=== PATIENT | female | born 1930 | race Caucasian/White ===

== ENCOUNTER → 2018-05-14 | Outpatient (CLI) | payer MEDICARE, BC ==
--- NOTE | 2018-05-14 14:04 | US ---
EXAMINATION TYPE: US kidneys/renal and bladder DATE OF EXAM: 05/14/2018 COMPARISON: NONE CLINICAL HISTORY: R82.99 ABN.FINDINGS IN URINE. Abnormal creatinine EXAM MEASUREMENTS: Right Kidney: 9.2 x 4.8 x 4.8 cm Left Kidney: 9.3 x 4.0 x 3.6 cm Right Kidney: Simple cystic area = 2.2 x 1.9 x 2.4cm Left Kidney: lower pole obscured by overlying bowel, unable to rule out mass, no evidence of hydronep hrosis Bladder: appears wnl Bilateral Jets seen: yes IMPRESSION: 1. Simple right renal cyst
== END | disposition home or self-care (01) ==
LOC: RADUSWWP 13:06
PROVIDERS: ATTEND Family Medicine
DX: N28.1 Cyst of kidney, acquired (principal)
CPT/HCPCS: 76770

== ENCOUNTER 2018-11-25 15:14 | Emergency (ER) | payer MEDICARE, BC ==
[2018-11-25 15:18] VITALS: TEMP 97.8
--- NOTE | 2018-11-25 15:58 | XR ---
EXAMINATION TYPE: XR shoulder complete RT DATE OF EXAM: 11/25/2018 COMPARISON: NONE HISTORY: Shoulder pain TECHNIQUE: 3 views FINDINGS: There is minor spurring at the greater tuberosity of the humerus. I see no fracture nor dis location. IMPRESSION: Mild spurring. No fracture seen.
--- NOTE | 2018-11-25 15:59 | XR ---
EXAMINATION TYPE: XR humerus RT DATE OF EXAM: 11/25/2018 COMPARISON: NONE HISTORY: Pain after a fall TECHNIQUE: 4 views FINDINGS: Glenohumeral joint is intact. Elbow joint appears intact. I see no fracture nor dislocation . There is some spurring at the greater tuberosity of the humerus. IMPRESSION: No acute abnormality of the right humerus.
--- NOTE | 2018-11-25 16:04 | ED ---
General Adult HPI - General Chief complaint: Extremity Injury, Upper Stated complaint: Fall Time Seen by Provider: 11/25/18 15:19 Source: patient, family, RN notes reviewed Mode of arrival: wheelchair Limitations: no limitations - History of Present Illness Initial comments: Patient is a pleasant 88-year-old female presenting to the emergency Department with complaints of right upper shoulder discomfort. Patient states she woke up this morning after she fell out of bed. Patient states she still landed on the right upper shoulder region. Patient has complain of discomfort since that time. Discomfort increases with movement. Patient is not aware of hitting her head or losing consciousness. No neck or back pain. No chest pain. No hip injury. No other areas of concern. - Related Data Home Medications Medication Instructions Recorded Confirmed Butalb/APAP/Caff 50-325-40Mg 1 tab PO Q6H PRN 04/25/16 06/27/16 [Fioricet 50-325-40] Lisinopril [Zestril] 5 mg PO HS 05/27/16 06/27/16 Levothyroxine Sodium [Synthroid] 50 mcg PO DAILY 06/14/16 06/27/16 Lisinopril [Zestril] 10 mg PO DAILY 06/14/16 06/27/16 DULoxetine HCL [Cymbalta] 30 mg PO BID 06/27/16 06/27/16 Previous Rx's Medication Instructions Recorded Acetaminophen Tab [Tylenol] 650 mg PO Q6HR PRN #0 tab 07/02/16 Acetaminophen with Codeine 1 tab PO Q6HR PRN #20 tablet 07/02/16 [Tylenol w/codeine #4] Artificial Tears-Hypromellose 1 drops BOTH EYES BID bottle 07/02/16 [Artificial Tear Drops] Cholestyramine (with Sugar) 4 gm PO QID #30 packet 07/02/16 [Questran Packet] Melatonin 2 mg PO HS tab 07/02/16 Pantoprazole [Protonix] 40 mg PO AC-BRKFST #30 tablet. 07/02/16 QUEtiapine [SEROquel] 12.5 mg PO HS #10 tab 07/02/16 Sodium Chloride Tab 1 gm PO TID tab 07/02/16 Vancomycin Oral Solution 250 mg PO Q6HR #0 ml 07/02/16 oxyCODONE-APAP 5-325MG [Percocet 1 tab PO BID #14 tab 07/02/16 5-325 mg] Allergies Allergy/AdvReac Type Severity Reaction Status Date / Time amiodarone HCl Allergy Unknown Verified 11/25/18 15:18 [From Cordarone] epinephrine Allergy Unknown Verified 11/25/18 15:18 metoclopramide HCl Allergy Unknown Verified 11/25/18 15:18 [From Reglan] nifedipine [From Procardia] Allergy Unknown Verified 11/25/18 15:18 nitrofurantoin Allergy Unknown Verified 11/25/18 15:18 macrocrystalline [From Macrodantin] propafenone HCl Allergy Unknown Verified 11/25/18 15:18 [From Rythmol] Quinolones Allergy Unknown Verified 11/25/18 15:18 novacaine Allergy Unknown Uncoded 11/25/18 15:18 Review of Systems ROS Statement: Those systems with pertinent positive or pertinent negative responses have been documented in the HPI. ROS Other: All systems not noted in ROS Statement are negative. Constitutional: Denies: fever Eyes: Denies: eye pain ENT: Denies: ear pain Respiratory: Denies: cough Cardiovascular: Denies: chest pain Endocrine: Denies: fatigue Gastrointestinal: Denies: abdominal pain Genitourinary: Denies: dysuria Musculoskeletal: Reports: as per HPI. Denies: back pain Skin: Denies: rash Neurological: Denies: headache Past Medical History Past Medical History: Atrial Fibrillation, CVA/TIA, Dementia, Hypertension, Osteoarthritis (OA), Pneumonia, Thyroid Disorder Additional Past Medical History / Comment(s): hypothyroid, migraine cephalgia, irregular heart rate, TIA, neuropathy History of Any Multi-Drug Resistant Organisms: None Reported Past Surgical History: Appendectomy, Back Surgery, Section, Orthopedic Surgery, Tonsillectomy Additional Past Surgical History / Comment(s): Back surgery failed stenosis repair, pelvic area reconstruction surgery 3x post vaginal delivery of first child, hammer toe repair with pin and removal. Past Anesthesia/Blood Transfusion Reactions: No Reported Reaction Past Psychological History: Depression Smoking Status: Never smoker Past Alcohol Use History: None Reported Past Drug Use History: None Reported - Past Family History Mother Family Medical History: Hypertension Father Family Medical History: CVA/TIA General Exam Limitations: no limitations General appearance: alert, in no apparent distress Head exam: Present: atraumatic, normocephalic Eye exam: Present: normal appearance, PERRL, EOMI ENT exam: Present: normal oropharynx Neck exam: Present: normal inspection, full ROM. Absent: tenderness Respiratory exam: Present: normal lung sounds bilaterally. Absent: chest wall tenderness Cardiovascular Exam: Present: regular rate, normal rhythm Expanded Peripheral pulses: 2+: Radial (R) GI/Abdominal exam: Present: soft. Absent: tenderness Extremities exam: Present: tenderness (Mild tenderness right proximal humerus and humeral head. No tenderness to the clavicle. No tenderness to the scapula. Mild tenderness to the trapezius between the neck and shoulder. No cervical spine or thoracic spine tenderness. No arm weakness. Sensation intact. No other extremity tenderness.) Back exam: Present: normal inspection. Absent: tenderness, vertebral tenderness Neurological exam: Present: alert, CN II-XII intact. Absent: motor sensory deficit Psychiatric exam: Present: normal affect, normal mood Skin exam: Present: normal color Course Vital Signs 11/25/18 15:16 Temperature 97.8 F Pulse Rate 88 Respiratory 20 Rate Blood Pressure 188/106 O2 Sat by Pulse 99 Oximetry Medical Decision Making - Medical Decision Making Patient reevaluated. Patient and family updated. - Radiology Data Radiology results: image reviewed (X-ray of the right humerus and shoulder reveals no acute abnormality.) Disposition Clinical Impression: Shoulder strain Disposition: HOME SELF-CARE Condition: Stable Instructions: Shoulder Sprain (ED) Additional Instructions: [id number] Tylenol or Motrin as needed. Please follow-up with primary care physician in the next day or 2 for recheck. Return for weakness, worsening or change in symptoms, or any other concerns. Is patient prescribed a controlled substance at d/c from ED?: No Referrals: Florencia Gaviria MD [STAFF PHYSICIAN] - 1-2 days Time of Disposition: 16:13
[2018-11-25] MEDS ORDERED: ACETAMINOPHEN TAB 325 MG TAB PO STA (16:13)
[2018-11-25] MEDS ORDERED: Acetaminophen-Codeine 300-30mg TAB PO STA (16:46)
[2018-11-25 17:01] VITALS: BP 160/78; PULSE 70; RESP 18
== END 2018-11-25 17:00 | disposition home or self-care (01) ==
LOC: EC 15:14
DX: S46.911A Strain of unspecified muscle, fascia and tendon at shoulder and upper arm level, right arm, initial encounter (principal); M19.90 Unspecified osteoarthritis, unspecified site; I10 Essential (primary) hypertension; E03.9 Hypothyroidism, unspecified; F32.9 Major depressive disorder, single episode, unspecified; Z86.73 Personal history of transient ischemic attack (TIA), and cerebral infarction without residual deficits; Z79.899 Other long term (current) drug therapy; Z88.8 Allergy status to other drugs, medicaments and biological substances; Z88.1 Allergy status to other antibiotic agents; Z88.7 Allergy status to serum and vaccine; W06.XXXA Fall from bed, initial encounter
CPT/HCPCS: 99283

== ENCOUNTER 2019-01-06 15:09 | Inpatient (IN) | payer MEDICARE, BC ==
[2019-01-06] MEDS ORDERED: SODIUM CHLORIDE 0.9% 1,000 ML IV STA (16:19)
--- NOTE | 2019-01-06 16:23 | ED ---
General Adult HPI - General Chief complaint: Weakness Stated complaint: weakness Time Seen by Provider: 01/06/19 15:56 Source: patient, family, RN notes reviewed Mode of arrival: wheelchair Limitations: no limitations - History of Present Illness Initial comments: Patient is a pleasant 88-year-old male presenting to the emergency Department with complaints of generalized weakness. Onset was yesterday afternoon. Symptoms continue. Patient has difficulty standing up. Patient does admit to having a fall a couple of weeks ago with some discomfort of her left leg. This doesn't have it her from doing some of her normal activities. Patient is able to still walk. Patient may have some discomfort of her lower back however mostly the left upper leg. Patient did not hit her head or lose consciousness. Patient denies any confusion. Patient does have history of similar symptoms previously intermittently however they usually improve in short period of time. - Related Data Home Medications Medication Instructions Recorded Confirmed Lisinopril [Zestril] 5 mg PO HS 05/27/16 01/06/19 Lisinopril [Zestril] 10 mg PO DAILY 06/14/16 01/06/19 DULoxetine HCL [Cymbalta] 30 mg PO BID 06/27/16 01/06/19 Ascorbic Acid [Vitamin C] 500 mg PO DAILY 11/25/18 01/06/19 Cholecalciferol [Vitamin D3] 1,000 unit PO DAILY 11/25/18 01/06/19 Gabapentin [Neurontin] 400 mg PO BID 11/25/18 01/06/19 Levothyroxine Sodium [Synthroid] 88 mcg PO DAILY 11/25/18 01/06/19 Mirtazapine [Remeron] 15 mg PO HS 11/25/18 01/06/19 Pravastatin Sodium [Pravachol] 10 mg PO DAILY 11/25/18 01/06/19 Vit C/E/Zn/Coppr/Lutein/Zeaxan 1 cap PO DAILY 11/25/18 01/06/19 [Preservision Areds 2 Softgel] oxyCODONE-APAP 10-325MG [Percocet 1 tab PO Q12H 11/25/18 01/06/19 10-325 mg] Ferrous Sulfate [Feosol] 325 mg PO DAILY 01/06/19 01/06/19 Allergies Allergy/AdvReac Type Severity Reaction Status Date / Time amiodarone HCl Allergy Unknown Verified 01/06/19 16:22 [From Cordarone] epinephrine Allergy Unknown Verified 01/06/19 16:22 metoclopramide HCl Allergy Unknown Verified 01/06/19 16:22 [From Reglan] nifedipine [From Procardia] Allergy Unknown Verified 01/06/19 16:22 nitrofurantoin Allergy Unknown Verified 01/06/19 16:22 macrocrystalline [From Macrodantin] propafenone HCl Allergy Unknown Verified 01/06/19 16:22 [From Rythmol] Quinolones Allergy Unknown Verified 01/06/19 16:22 novacaine Allergy Unknown Uncoded 01/06/19 15:28 Review of Systems ROS Statement: Those systems with pertinent positive or pertinent negative responses have been documented in the HPI. ROS Other: All systems not noted in ROS Statement are negative. Constitutional: Denies: fever Eyes: Denies: eye pain ENT: Denies: ear pain Respiratory: Denies: cough, dyspnea Cardiovascular: Denies: chest pain Endocrine: Reports: fatigue Gastrointestinal: Denies: abdominal pain Genitourinary: Denies: dysuria Musculoskeletal: Reports: as per HPI Skin: Denies: rash Neurological: Reports: as per HPI. Denies: headache, confusion Past Medical History Past Medical History: Atrial Fibrillation, CVA/TIA, Dementia, Hypertension, Osteoarthritis (OA), Pneumonia, Thyroid Disorder Additional Past Medical History / Comment(s): hypothyroid, migraine cephalgia, irregular heart rate, TIA, neuropathy History of Any Multi-Drug Resistant Organisms: None Reported Past Surgical History: Appendectomy, Back Surgery, Section, Orthopedic Surgery, Tonsillectomy Additional Past Surgical History / Comment(s): Back surgery failed stenosis repair, pelvic area reconstruction surgery 3x post vaginal delivery of first child, hammer toe repair with pin and removal. Past Anesthesia/Blood Transfusion Reactions: No Reported Reaction Past Psychological History: Depression Smoking Status: Never smoker Past Alcohol Use History: None Reported Past Drug Use History: None Reported - Past Family History Mother Family Medical History: Hypertension Father Family Medical History: CVA/TIA General Exam Limitations: no limitations General appearance: alert, in no apparent distress Head exam: Present: atraumatic, normocephalic Eye exam: Present: normal appearance, PERRL, EOMI ENT exam: Present: normal oropharynx Neck exam: Present: normal inspection. Absent: tenderness, meningismus Respiratory exam: Present: normal lung sounds bilaterally Cardiovascular Exam: Present: regular rate, normal rhythm GI/Abdominal exam: Present: soft. Absent: tenderness Extremities exam: Present: tenderness (Minimal tenderness left lateral upper thigh.). Absent: pedal edema, calf tenderness Back exam: Present: normal inspection. Absent: tenderness, vertebral tenderness Neurological exam: Present: alert, oriented X3, CN II-XII intact. Absent: motor sensory deficit Expanded Patient oriented to: Present: person, place, time Sensory exam: Upper Extremity Light Touch: Normal, Lower Extremity Light Touch: Normal Motor strength exam: RUE: 5, LUE: 5, RLE: 5, LLE: 5 Eye Response: (4) open spontaneously Motor Response: (6) obeys commands Verbal Response: (5) oriented Psychiatric exam: Present: normal affect, normal mood Skin exam: Present: normal color Course Vital Signs 01/06/19 01/06/19 15:23 16:46 Temperature 98.3 F 100.8 F H Pulse Rate 85 Respiratory 16 Rate Blood Pressure 95/64 O2 Sat by Pulse 95 Oximetry - Reevaluation(s) Reevaluation #1: 01/06/19 18:30 Patient does meet sepsis criteria diagnosed at 1830. Blood culture and lactic acid and urine culture and IV antibiotics have all been ordered. EKG Findings - EKG Comments: EKG Findings:: Normal sinus rhythm 78. CT 200. QRS 86. QT 360. QTC 410. Left axis. Septal Q waves. Inferior Q waves. No acute ST change. Medical Decision Making - Medical Decision Making Patient reevaluated and resting comfortably in bed. Patient and family updated on results and plan. Case discussed in detail with Dr. waterman, who will admit for Dr. Hunt, who admits for Dr. Shepard. - Lab Data Result diagrams: 01/06/19 16:20 01/06/19 16:20 Lab Results 01/06/19 01/06/19 01/06/19 Range/Units 16:20 16:20 16:20 WBC 12.2 H (3.8-10.6) k/uL RBC 3.98 (3.80-5.40) m/uL Hgb 12.3 (11.4-16.0) gm/dL Hct 37.1 (34.0-46.0) % MCV 93.2 (80.0-100.0) fL MCH 30.9 (25.0-35.0) pg MCHC 33.2 (31.0-37.0) g/dL RDW 13.6 (11.5-15.5) % Plt Count 340 (150-450) k/uL Neutrophils % 77 % Lymphocytes % 10 % Monocytes % 9 % Eosinophils % 1 % Basophils % 1 % Neutrophils # 9.4 H (1.3-7.7) k/uL Lymphocytes # 1.3 (1.0-4.8) k/uL Monocytes # 1.1 H (0-1.0) k/uL Eosinophils # 0.2 (0-0.7) k/uL Basophils # 0.1 (0-0.2) k/uL PT (9.0-12.0) sec INR (<1.2) APTT (22.0-30.0) sec Sodium 137 (137-145) mmol/L Potassium 4.6 (3.5-5.1) mmol/L Chloride 101 (98-107) mmol/L Carbon Dioxide 26 (22-30) mmol/L Anion Gap 10 mmol/L BUN 21 H (7-17) mg/dL Creatinine 1.28 H (0.52-1.04) mg/dL Est GFR (CKD-EPI)AfAm 43 (>60 ml/min/1.73 sqM) Est GFR (CKD-EPI)NonAf 38 (>60 ml/min/1.73 sqM) Glucose 115 H (74-99) mg/dL Calcium 9.5 (8.4-10.2) mg/dL Magnesium 2.0 (1.6-2.3) mg/dL Total Bilirubin 0.7 (0.2-1.3) mg/dL AST 27 (14-36) U/L ALT 21 (9-52) U/L Alkaline Phosphatase 77 (38-126) U/L Total Creatine Kinase 197 H (30-135) U/L CK-MB (CK-2) 1.9 (0.0-2.4) ng/mL CK-MB (CK-2) Rel Index 1.0 Troponin I <0.012 (0.000-0.034) ng/mL Total Protein 7.5 (6.3-8.2) g/dL Albumin 4.1 (3.5-5.0) g/dL TSH 14.900 H (0.465-4.680) mIU/L Free T4 0.85 (0.78-2.19) ng/dL Free T3 pg/mL 1.8 L (2.8-5.3) pg/ml Urine Color Urine Appearance (Clear) Urine pH (5.0-8.0) Ur Specific [place] (1.001-1.035) Urine Protein (Negative) Urine Glucose (UA) (Negative) Urine Ketones (Negative) Urine Blood (Negative) Urine Nitrite (Negative) Urine Bilirubin (Negative) Urine Urobilinogen (<2.0) mg/dL Ur Leukocyte Esterase (Negative) Urine WBC (0-5) /hpf Urine WBC Clumps (None) /hpf Urine Bacteria (None) /hpf 01/06/19 01/06/19 Range/Units 16:20 16:55 WBC (3.8-10.6) k/uL RBC (3.80-5.40) m/uL Hgb (11.4-16.0) gm/dL Hct (34.0-46.0) % MCV (80.0-100.0) fL MCH (25.0-35.0) pg MCHC (31.0-37.0) g/dL RDW (11.5-15.5) % Plt Count (150-450) k/uL Neutrophils % % Lymphocytes % % Monocytes % % Eosinophils % % Basophils % % Neutrophils # (1.3-7.7) k/uL Lymphocytes # (1.0-4.8) k/uL Monocytes # (0-1.0) k/uL Eosinophils # (0-0.7) k/uL Basophils # (0-0.2) k/uL PT 10.3 (9.0-12.0) sec INR 1.0 (<1.2) APTT 22.5 (22.0-30.0) sec Sodium (137-145) mmol/L Potassium (3.5-5.1) mmol/L Chloride (98-107) mmol/L Carbon Dioxide (22-30) mmol/L Anion Gap mmol/L BUN (7-17) mg/dL Creatinine (0.52-1.04) mg/dL Est GFR (CKD-EPI)AfAm (>60 ml/min/1.73 sqM) Est GFR (CKD-EPI)NonAf (>60 ml/min/1.73 sqM) Glucose (74-99) mg/dL Calcium (8.4-10.2) mg/dL Magnesium (1.6-2.3) mg/dL Total Bilirubin (0.2-1.3) mg/dL AST (14-36) U/L ALT (9-52) U/L Alkaline Phosphatase (38-126) U/L Total Creatine Kinase (30-135) U/L CK-MB (CK-2) (0.0-2.4) ng/mL CK-MB (CK-2) Rel Index Troponin I (0.000-0.034) ng/mL Total Protein (6.3-8.2) g/dL Albumin (3.5-5.0) g/dL TSH (0.465-4.680) mIU/L Free T4 (0.78-2.19) ng/dL Free T3 pg/mL (2.8-5.3) pg/ml Urine Color Yellow Urine Appearance Turbid H (Clear) Urine pH 5.5 (5.0-8.0) Ur Specific [place] 1.016 (1.001-1.035) Urine Protein 2+ H (Negative) Urine Glucose (UA) Negative (Negative) Urine Ketones Negative (Negative) Urine Blood Small H (Negative) Urine Nitrite Negative (Negative) Urine Bilirubin Negative (Negative) Urine Urobilinogen <2.0 (<2.0) mg/dL Ur Leukocyte Esterase Large H (Negative) Urine WBC >182 H (0-5) /hpf Urine WBC Clumps Many H (None) /hpf Urine Bacteria Many H (None) /hpf - Radiology Data Radiology results: report reviewed (Computed tomography scan the brain reveals no acute process), image reviewed (Chest x-ray shows no acute process) Critical Care Time Critical Care Time: Yes Total Critical Care Time: 33 Disposition Clinical Impression: UTI (urinary tract infection), Sepsis Disposition: ADMITTED IP TO THIS HOSP Is patient prescribed a controlled substance at d/c from ED?: No Referrals: Jacob Shepard DO [Primary Care Provider] - 1-2 days Decision Time: 18:31
[2019-01-06 16:31] LABS: Basophils # (A) 0.1 k/uL (0-0.2); Basophils % (A) 1 %; Eosinophils # (A) 0.2 k/uL (0-0.7); Eosinophils % (A) 1 %; HCT 37.1 % (34.0-46.0); HGB 12.3 gm/dL (11.4-16.0); Lymphocytes # (A) 1.3 k/uL (1.0-4.8); Lymphocytes % (A) 10 %; MCH 30.9 pg (25.0-35.0); MCHC 33.2 g/dL (31.0-37.0); MCV 93.2 fL (80.0-100.0); Mean Platelet Volume 6.6; Monocytes # (A) 1.1 k/uL (0-1.0); Monocytes % (A) 9 %; Neutrophils # (A) 9.4 k/uL (1.3-7.7); Neutrophils % (A) 77 %; Platelet Count 340 k/uL (150-450); RBC 3.98 m/uL (3.80-5.40); RDW 13.6 % (11.5-15.5); WBC 12.2 k/uL (3.8-10.6)
[2019-01-06 16:40] LABS: Albumin 4.1 g/dL (3.5-5.0); Calcium 9.5 mg/dL (8.4-10.2); Potassium 4.6 mmol/L (3.5-5.1); Total Bilirubin 0.7 mg/dL (0.2-1.3); Total Protein 7.5 g/dL (6.3-8.2)
[2019-01-06 16:43] LABS: Creatine Kinase 197 U/L (30-135)
[2019-01-06 16:45] LABS: Partial Thromboplastin Time 22.5 sec (22.0-30.0); Prothrombin Time 10.3 sec (9.0-12.0)
[2019-01-06] MEDS ORDERED: ACETAMINOPHEN TAB 325 MG TAB PO STA (16:53)
[2019-01-06 16:56] LABS: Creatine Kinase MB 1.9 ng/mL (0.0-2.4); Troponin I <0.012 ng/mL (0.000-0.034)
[2019-01-06 16:57] LABS: T4, Free (Free Thyroxine) 0.85 ng/dL (0.78-2.19)
[2019-01-06 17:20] LABS: Appearance,Urine Turbid (Clear); Bacteria,Urine Many /hpf; Bilirubin,Urine Negative (Negative); Blood,Urine Small (Negative); Color,Urine Yellow; Glucose,Urine (UA) Negative (Negative); Ketones,Urine Negative (Negative); Leukocyte Esterase,Urine Large (Negative); Nitrite,Urine Negative (Negative); PH, Urine 5.5 (5.0-8.0); Protein,Urine 2+ (Negative); Specific Gravity,Urine 1.016 (1.001-1.035); Urobilinogen,Urine <2.0 mg/dL (<2.0); WBC,Urine >182 /hpf (0-5)
--- NOTE | 2019-01-06 17:46 | CT ---
EXAMINATION TYPE: CT brain wo con DATE OF EXAM: 01/06/2019 COMPARISON: 06/14/2016 HISTORY: weakness, ams CT DLP: 1078.4 mGycm Automated exposure control for dose reduction was used. FINDINGS: There is cerebral cortical atrophy. There is no mass effect nor midline shift. There is no sign of in tracranial hemorrhage. There is mild white matter hypodensity. Calvarium is intact. IMPRESSION: CEREBRAL ATROPHY AND CHRONIC SMALL VESSEL ISCHEMIA. NO ACUTE INTRACRANIAL ABNORMALITY. NO CHANGE.
--- NOTE | 2019-01-06 17:48 | XR ---
EXAMINATION TYPE: XR chest 2V DATE OF EXAM: 01/06/2019 COMPARISON: 06/14/2016 HISTORY: Weakness TECHNIQUE: Frontal and lateral views of the chest are obtained. FINDINGS: Heart is normal. There are small linear density in the left lung base. There is no heart f ailure. Thoracic aorta is atheromatous. There are chest leads. There is vertebroplasty in the mid tho racic spine. There is osteopenia. IMPRESSION: No heart failure. There is no interval subsegmental atelectasis left lower lobe compared to old exam.
--- NOTE | 2019-01-06 18:28 | XR ---
Left femur 4 views. Pain. Weakness. Comparison none. FINDINGS: There is some calcification of the menisci of the knee. I see no fracture nor dislocation. There is m ild acetabular spurring. There is osteopenia. IMPRESSION: No acute abnormality of the left femur. No fracture seen.
[2019-01-06] MEDS ORDERED: ACETAMINOPHEN TAB 325 MG TAB PO PRN (18:31)
[2019-01-06] MEDS ORDERED: NALOXONE 0.4 MG/ML 1 ML VIAL IV PRN (18:31)
--- NOTE | 2019-01-06 18:32 | XR ---
Lumbar spine 3 views. History weakness. Pain. Comparison 04/10/2013. FINDINGS: There is mild lumbar dextroscoliosis. There is 1 cm anterior subluxation of L4 in relation L5. There is 5 mm subluxation at L3-4 level. I see no compression fracture. There is osteopenia. The sacroiliac joints are intact. IMPRESSION: Spondylotic changes. Degenerative spondylolisthesis at L3-4 L4-5. No acute fracture seen. L4-5 sublux ation increased slightly compared to old exam..
--- NOTE | 2019-01-06 19:29 | XR ---
Pelvis single view. History weakness. Pain. Comparison none. FINDINGS: Pelvic ring is intact. Proximal femurs are intact. There is mild acetabular spurring. There is no sig nificant joint space narrowing. Sacroiliac joints are intact. IMPRESSION: No acute abnormality of the pelvis.
[2019-01-06 20:27] VITALS: BMI 20.7
[2019-01-07] MEDS: SODIUM CHLORIDE 0.9% 1,000 ML IV SCH ×4 (06:01→23:47)
[2019-01-07] MEDS ORDERED: LEVOTHYROXINE 88 MCG TAB PO SCH (10:00)
[2019-01-07] MEDS: VIT A,C & E-LUTEIN-MINERALS 1 EACH TAB PO SCH (10:18)
[2019-01-07] MEDS: FERROUS SULFATE 325 MG TAB PO SCH (10:18)
[2019-01-07] MEDS: CHOLECALCIFEROL 1,000 UNIT TAB PO SCH (10:18)
--- NOTE | 2019-01-07 18:47 | HP ---
HISTORY AND PHYSICAL DATE OF SERVICE: 01/07/2019 CHIEF COMPLAINT: Weakness. HISTORY OF PRESENT ILLNESS: This 88-year-old woman with a past medical history of multiple medical problems, including history of atrial fibrillation, CVA, TIA, dementia, hypertension, history of DJD, being followed by Dr. Shepard in the outpatient setting, was complaining of weakness. The family noted the weakness yesterday. Patient was unable to get up. Patient also had some pain in the legs. Patient was thought to have a UTI with sepsis. Patient had some back pain, also. As far as the labs are concerned, they show UTI. The patient also had some features of some hypothyroidism. The patient is taking levothyroxine 88 mcg only. The patient had multiple x-rays, and x-rays of the pelvis and lumbar x-rays which showed spondylolysis with no fractures. Femur x-ray showed no fracture or abnormality. PAST MEDICAL HISTORY: 1. History of atrial fibrillation. 2. CVA, TIA. 3. Dementia. 4. Hypertension. 5. DJD. 6. History of pneumonia. HOME MEDICATIONS: 1. Percocet 10 mg b.i.d. 2. Vitamin Z, zinc, copper, lutein 1 capsule daily. 3. Pravachol 10 mg p.o. daily. 4. Remeron 15 mg at bedtime. 5. Zestril 10 mg p.o. daily and 5 mg at bedtime. 6. Synthroid 88 mcg p.o. daily. 7. Neurontin 400 mg p.o. b.i.d. 8. Iron sulfate 320 mg p.o. daily. 9. Cymbalta 30 mg p.o. b.i.d. 10.Vitamin D3 1000 daily. 11.Vitamin C 500 mg p.o. daily. ALLERGIES: 1. CORDARONE. 2. EPINEPHRINE. 3. REGLAN. 4. PROCARDIA. 5. MACRODANTIN. 6. RYTHMOL. 7. QUINOLONES. 8. NOVOCAINE. FAMILY HISTORY: History of hypertension in the family. SOCIAL HISTORY: No history of smoking. No history of alcohol. REVIEW OF SYSTEMS: ENT: Diminished hearing. Diminished vision. CARDIOVASCULAR SYSTEM: No angina, palpitations. RESPIRATORY SYSTEM: No cough, hemoptysis. GI: No nausea, vomiting. : As mentioned earlier. NERVOUS SYSTEM: No numbness. Generalized weakness. ALLERGY/IMMUNOLOGY: No asthma, hayfever. MUSCULOSKELETAL: As mentioned earlier. HEMATOLOGY/ONCOLOGY: No history of anemia. ENDOCRINE: Hypothyroidism. CONSTITUTIONAL: As mentioned earlier. DERMATOLOGY: Negative. RHEUMATOLOGY: Negative. PSYCHIATRY: As mentioned earlier. PHYSICAL EXAMINATION: Patient alert, oriented x3. Pulse 76, blood pressure 135/73, respiration 16, temperature 98.2, pulse ox 95% on room air. HEENT: Conjunctivae normal. Oral mucosa moist. NECK: No jugular venous distention. No carotid bruit. No lymph node enlargement. CARDIOVASCULAR SYSTEM: S1, S2 muffled. RESPIRATORY SYSTEM: Breath sounds diminished at the bases. A few scattered rhonchi. No crackles. ABDOMEN: Soft, non-tender. No mass palpable. LEGS: No edema. No swelling. NERVOUS SYSTEM: Higher functions as mentioned earlier. Moves all 4 limbs. Mild diffuse weakness. LYMPHATICS: No lymph node palpable in neck, axillae or groin. SKIN: No ulcer, rash, bleeding. JOINTS: No active deforming arthropathy. LABS: WBC 12.2, hemoglobin 12.3. Creatinine is 1.28. TSH, free T4 noted. ASSESSMENT: 1. Acute urinary tract infection with sepsis. 2. Change in mental status, weakness, metabolic encephalopathy secondary from urinary tract infection. 3. Increased creatinine with mild acute renal failure, possibly prerenal acute tubular necrosis. 4. Possible hypothyroidism with elevated TSH and reduced free T3. 5. History atrial fibrillation. 6. History of cerebrovascular accident, transient ischemic attack. 7. Dementia. 8. Hypertension. 9. History of degenerative joint disease. 10.History of pneumonia. 11.History of migraine cephalgia. 12.History of transient ischemic attack. 13. degenerative joint disease. 14.History of depression. 15.Spondylosis. 16.FULL CODE. RECOMMENDATIONS AND DISCUSSION: In this 88-year-old woman who presented with multiple complex medical issues, we will monitor the patient closely, continue the current medications, continue with symptomatic treatment. Will initiate broad-spectrum IV antibiotics, obtain cultures. PT, OT evaluation. DVT prophylaxis. I would also increase the dose of Synthroid to 125 mcg. Possible ECF rehab. Prognosis guarded. Further recommendations to follow. A copy of this dictation is being forwarded to Dr. Shepard, who is the primary physician. See orders for further details. MMODL / IJN: [id number] / GUS
[2019-01-07] MEDS: DULoxetine HCL 30 MG CAPSULE.DR PO SCH (20:45)
[2019-01-07] MEDS: LISINOPRIL 5 MG TAB PO SCH (20:45)
[2019-01-07] MEDS: GABAPENTIN 400 MG CAP PO SCH (20:45)
[2019-01-07] MEDS: MIRTAZAPINE 15 MG TAB PO SCH (20:45)
[2019-01-07] MEDS: HEPARIN SODIUM,PORCINE 5,000 UNIT/ML 1 ML VIAL SQ SCH (20:45)
[2019-01-08] MEDS: LEVOTHYROXINE 125 MCG TAB PO SCH (05:52)
[2019-01-08] MEDS: ASCORBIC ACID 500 MG TAB PO SCH (08:20)
[2019-01-08] MEDS: DULoxetine HCL 30 MG CAPSULE.DR PO SCH ×2 (08:20→21:48)
[2019-01-08] MEDS: PANTOPRAZOLE 40 MG TABLET PO SCH (08:20)
[2019-01-08] MEDS: PRAVASTATIN SODIUM 20 MG TAB PO SCH (08:20)
[2019-01-08] MEDS: VIT A,C & E-LUTEIN-MINERALS 1 EACH TAB PO SCH (08:20)
[2019-01-08] MEDS: FOLIC ACID 1 MG TAB PO SCH (08:20)
[2019-01-08] MEDS: LISINOPRIL 10 MG TAB PO SCH (08:21)
[2019-01-08] MEDS: THIAMINE 100 MG TAB PO SCH (08:21)
[2019-01-08] MEDS: HEPARIN SODIUM,PORCINE 5,000 UNIT/ML 1 ML VIAL SQ SCH ×2 (08:21→21:48)
[2019-01-08] MEDS: FERROUS SULFATE 325 MG TAB PO SCH (08:21)
[2019-01-08] MEDS: GABAPENTIN 400 MG CAP PO SCH ×2 (08:21→21:48)
[2019-01-08] MEDS: CHOLECALCIFEROL 1,000 UNIT TAB PO SCH (08:21)
[2019-01-08 10:25] LABS: Basophils % (A) 1 %; Eosinophils # (A) 0.2 k/uL (0-0.7); Eosinophils % (A) 3 %; HCT 36.7 % (34.0-46.0); HGB 11.4 gm/dL (11.4-16.0); Hypochromasia Slight; Lymphocytes # (A) 1.1 k/uL (1.0-4.8); Lymphocytes % (A) 18 %; MCH 30.1 pg (25.0-35.0); MCHC 31.2 g/dL (31.0-37.0); MCV 96.5 fL (80.0-100.0); Mean Platelet Volume 7.6; Monocytes # (A) 0.6 k/uL (0-1.0); Monocytes % (A) 10 %; Neutrophils % (A) 65 %; Platelet Count 332 k/uL (150-450); RDW 13.4 % (11.5-15.5); WBC 6.1 k/uL (3.8-10.6)
[2019-01-08 10:30] LABS: Anion Gap 9 mmol/L; Blood Urea Nitrogen 8 mg/dL (7-17); Calcium 9.1 mg/dL (8.4-10.2); Carbon Dioxide 25 mmol/L (22-30); Chloride 108 mmol/L (98-107); Cholesterol 150 mg/dL (<200); Glucose 124 mg/dL (74-99); HDL Cholesterol 37 mg/dL (40-60); LDL Cholesterol,Calculated 92 mg/dL (0-99); Potassium 3.3 mmol/L (3.5-5.1); Sodium 142 mmol/L (137-145); Triglycerides 107 mg/dL (<150)
[2019-01-08] MEDS: SODIUM CHLORIDE 0.9% 1,000 ML IV SCH (11:11)
--- NOTE | 2019-01-08 11:59 | ECHOF ---
Referral Reason:weakness MEASUREMENTS -------- HEIGHT: 165.1 cm WEIGHT: 56.7 kg BP: 135/73 IVSd: 1.3 cm (0.6 - 1.1) LVIDd: 3.1 cm (3.9 - 5.3) LVPWd: 1.4 cm (0.6 - 1.1) IVSs: 1.4 cm LVIDs: 1.7 cm LVPWs: 1.4 cm LA Diam: 4.7 cm (2.7 - 3.8) LAESV Index (A-L): 46.91 ml/m Ao Diam: 3.1 cm (2.0 - 3.7) AV Cusp: 1.7 cm (1.5 - 2.6) LA Diam: 2.8 cm (2.7 - 3.8) MV E Seth: 1.03 m/s MV DecT: 297 ms MV A Seth: 1.18 m/s MV E/A Ratio: 0.88 RAP: 15.00 mmHg RVSP: 48.62 mmHg FINDINGS -------- Sinus rhythm. This was a technically adequate study. The left ventricular size is normal. There is mild concentric left ventricular hypertrophy. Overa ll left ventricular systolic function is normal with, an EF between 55 - 60 %. The RV was not well visualized. LA is severely dilated >40 ml/m2 RA appears enlarged. There is mild aortic valve sclerosis. There is no evidence of aortic regurgitation. There is no e vidence of aortic stenosis. The mitral valve leaflets are mildly thickened. Mild mitral annular calcification present. Mild m itral regurgitation is present. Mild tricuspid regurgitation present. There is mild pulmonary hypertension. The right ventricular systolic pressure, as measured by Doppler, is 48.62mmHg. The pulmonic valve was not well visualized. The aortic root size is normal. The inferior vena cava is dilated with no significant inspiratory collapse which is consistent estima machelle right atrial pressure of >20 mmHg. There is a trivial pericardial effusion present. CONCLUSIONS -------- 1. Sinus rhythm. 2. This was a technically adequate study. 3. The left ventricular size is normal. 4. There is mild concentric left ventricular hypertrophy. 5. Overall left ventricular systolic function is normal with, an EF between 55 - 60 %. 6. The RV was not well visualized. 7. LA is severely dilated >40 ml/m2 8. RA appears enlarged. 9. There is mild aortic valve sclerosis. 10. The mitral valve leaflets are mildly thickened. 11. Mild mitral annular calcification present. 12. Mild mitral regurgitation is present. 13. Mild tricuspid regurgitation present. 14. There is mild pulmonary hypertension. 15. The right ventricular systolic pressure, as measured by Doppler, is 48.62mmHg. 16. The pulmonic valve was not well visualized. 17. The aortic root size is normal. 18. The inferior vena cava is dilated with no significant inspiratory collapse which is consistent es timated right atrial pressure of >20 mmHg. 19. There is a trivial pericardial effusion present. DIRECTORY CARRIER: Amari Russell RDCS
[2019-01-08] MEDS: 0.9% NACL WITH KCL 40 MEQ/L 1,000 ML IV SCH (16:21)
--- NOTE | 2019-01-08 16:40 | PN ---
PROGRESS NOTE DATE OF SERVICE: 01/08/2019 This 88-year-old woman who was admitted with generalized weakness possibly had acute UTI with sepsis. The patient is being closely monitored at this time. Cultures are pending at this time. A 2D echo with Doppler was also done showed ejection fraction about 55% to 60% and no significant valvular abnormalities; minimal abnormalities were noted throughout. No chest pain. No palpitations. No fever. On exam, alert and oriented x2. Pulse 62, blood pressure 156/88, respiration 20, temperature 97.8, pulse ox 96% on room air. HEENT: Conjunctivae normal. NECK: No jugular venous distention. CARDIOVASCULAR SYSTEM: S1, S2 muffled. RESPIRATORY SYSTEM: Breath sounds diminished at the bases. No rhonchi. No crackles. ABDOMEN: Soft, non-tender. LEGS: No edema. No swelling. NERVOUS SYSTEM: No focal deficit. LABS: WBC 6.1, hemoglobin 11.4. Sodium 142, potassium 3.3. ASSESSMENT: 1. Acute urinary tract infection with sepsis, present on admission. 2. Change in mental status, weakness, metabolic encephalopathy secondary to urinary tract infection. 3. Increased creatinine with mild acute renal failure, possibly prerenal acute tubular necrosis. 4. Possible hypothyroidism with elevated TSH and decreased free T3. 5. History of atrial fibrillation. 6. History of cerebrovascular accident, transient ischemic attack. 7. Dementia. 8. Hypertension. 9. History of degenerative joint disease. 10.History of pneumonia. 11.History of migraine cephalalgia. 12.History of transient ischemic attack. 13.Degenerative joint disease. 14.History of depression. 15.Spondylosis. 16.FULL CODE. RECOMMENDATIONS AND DISCUSSION: I recommend to continue current medications, continue with the monitoring, symptomatic treatment. Urine culture showed gram-negative bacilli. Also recommend potassium supplementation. Continue to monitor. Continue with IV antibiotics. PT/OT is evaluating the patient. Overall prognosis is guarded because of multiple complex medical issues. Further recommendations to follow. MMODL / IJN: [id number] /
[2019-01-08] MEDS: MIRTAZAPINE 15 MG TAB PO SCH (21:48)
[2019-01-08] MEDS: LISINOPRIL 5 MG TAB PO SCH (21:48)
[2019-01-09] MEDS: LEVOTHYROXINE 125 MCG TAB PO SCH (06:17)
[2019-01-09] MEDS: 0.9% NACL WITH KCL 40 MEQ/L 1,000 ML IV SCH ×2 (06:17→15:11)
[2019-01-09] MEDS: FERROUS SULFATE 325 MG TAB PO SCH (07:37)
[2019-01-09] MEDS: GABAPENTIN 400 MG CAP PO SCH ×2 (07:37→21:11)
[2019-01-09] MEDS: LISINOPRIL 10 MG TAB PO SCH (07:37)
[2019-01-09] MEDS: HEPARIN SODIUM,PORCINE 5,000 UNIT/ML 1 ML VIAL SQ SCH ×2 (07:37→21:11)
[2019-01-09] MEDS: PRAVASTATIN SODIUM 20 MG TAB PO SCH (07:37)
[2019-01-09] MEDS: VIT A,C & E-LUTEIN-MINERALS 1 EACH TAB PO SCH (07:37)
[2019-01-09] MEDS: CHOLECALCIFEROL 1,000 UNIT TAB PO SCH (07:37)
[2019-01-09] MEDS: ASCORBIC ACID 500 MG TAB PO SCH (07:37)
[2019-01-09] MEDS: PANTOPRAZOLE 40 MG TABLET PO SCH (07:37)
[2019-01-09] MEDS: FOLIC ACID 1 MG TAB PO SCH (07:37)
[2019-01-09] MEDS: THIAMINE 100 MG TAB PO SCH (07:37)
[2019-01-09] MEDS: DULoxetine HCL 30 MG CAPSULE.DR PO SCH ×2 (07:37→21:11)
[2019-01-09 08:22] LABS: Basophils # (A) 0.1 k/uL (0-0.2); Basophils % (A) 1 %; Eosinophils # (A) 0.3 k/uL (0-0.7); Eosinophils % (A) 4 %; HCT 39.6 % (34.0-46.0); HGB 12.1 gm/dL (11.4-16.0); Hypochromasia Moderate; Lymphocytes # (A) 1.5 k/uL (1.0-4.8); Lymphocytes % (A) 25 %; MCH 29.8 pg (25.0-35.0); MCHC 30.5 g/dL (31.0-37.0); MCV 97.6 fL (80.0-100.0); Mean Platelet Volume 6.6; Monocytes # (A) 0.6 k/uL (0-1.0); Monocytes % (A) 10 %; Neutrophils # (A) 3.5 k/uL (1.3-7.7); Neutrophils % (A) 57 %; Platelet Count 413 k/uL (150-450); RBC 4.06 m/uL (3.80-5.40); RDW 13.5 % (11.5-15.5); WBC 6.2 k/uL (3.8-10.6)
[2019-01-09 08:44] LABS: Anion Gap 9 mmol/L; Blood Urea Nitrogen 5 mg/dL (7-17); Calcium 9.3 mg/dL (8.4-10.2); Carbon Dioxide 25 mmol/L (22-30); Chloride 110 mmol/L (98-107); Glucose 98 mg/dL (74-99); Potassium 4.2 mmol/L (3.5-5.1); Sodium 144 mmol/L (137-145)
--- NOTE | 2019-01-09 18:32 | PN ---
PROGRESS NOTE DATE OF SERVICE: 01/09/2019 This 88-year-old woman who was admitted with acute UTI and sepsis is being closely monitored. Patient also has tiredness and weakness. Possible ECF rehab is being planned at this time. The cultures are showing E coli which is polysensitive. No chest pain. No palpitations. No fever. On exam, alert and oriented x3. Pulse is 79, blood pressure 161/82, respiration 18, temperature 97.8, pulse ox 98% on room air. HEENT: Conjunctivae normal. NECK: No jugular venous distention. CARDIOVASCULAR SYSTEM: S1, S2 muffled. RESPIRATORY SYSTEM: Breath sounds diminished at the bases. A few scattered rhonchi. ABDOMEN: Soft, non-tender. NERVOUS SYSTEM: No focal deficit. LABS: Potassium 4.2, sodium 144. ASSESSMENT: 1. Acute urinary tract infection with sepsis secondary to Escherichia coli, present on admission. 2. Change in mental status and weakness, metabolic encephalopathy secondary to urinary tract infection. 3. Increased creatinine with mild acute renal failure, possibly prerenal acute tubular necrosis, improving. 4. Possible hypothyroidism with elevated TSH and decreased free T3, on increased dose of Synthroid. 5. History of atrial fibrillation. 6. Cerebrovascular incident, transient ischemic attack. 7. Dementia. 8. Hypertension. 9. History of degenerative joint disease. 10.History of pneumonia. 11.History of migraine cephalgia. 12.History of transient ischemic attack. 13.Degenerative joint disease. 14.History of depression. 15.Spondylosis. 16.FULL CODE. RECOMMENDATIONS AND DISCUSSION: I recommend to continue current medications, continue with the monitoring, symptomatic treatment. We will monitor the patient closely. Continue with monitoring the blood pressure closely. Otherwise, I would also recommend continuing the antibiotics. PT/OT evaluation, possible ECF rehab. Guarded prognosis. Further recommendations to follow. MMODL / IJN: [id number] /
[2019-01-09] MEDS: MIRTAZAPINE 15 MG TAB PO SCH (21:11)
[2019-01-09] MEDS: LISINOPRIL 5 MG TAB PO SCH (21:11)
[2019-01-09] MEDS ORDERED: MELATONIN 3 MG TABLET PO SCH (22:30)
[2019-01-10] MEDS: LEVOTHYROXINE 125 MCG TAB PO SCH (06:07)
[2019-01-10 07:58] VITALS: RESP 16
[2019-01-10] MEDS: FERROUS SULFATE 325 MG TAB PO SCH (08:27)
[2019-01-10] MEDS: CHOLECALCIFEROL 1,000 UNIT TAB PO SCH (08:27)
[2019-01-10] MEDS: LISINOPRIL 10 MG TAB PO SCH (08:27)
[2019-01-10] MEDS: PANTOPRAZOLE 40 MG TABLET PO SCH (08:27)
[2019-01-10] MEDS: FOLIC ACID 1 MG TAB PO SCH (08:27)
[2019-01-10] MEDS: VIT A,C & E-LUTEIN-MINERALS 1 EACH TAB PO SCH (08:27)
[2019-01-10] MEDS: PRAVASTATIN SODIUM 20 MG TAB PO SCH (08:27)
[2019-01-10] MEDS: THIAMINE 100 MG TAB PO SCH (08:27)
[2019-01-10] MEDS: DULoxetine HCL 30 MG CAPSULE.DR PO SCH (08:27)
[2019-01-10] MEDS: ASCORBIC ACID 500 MG TAB PO SCH (08:27)
[2019-01-10] MEDS: HEPARIN SODIUM,PORCINE 5,000 UNIT/ML 1 ML VIAL SQ SCH (08:30)
[2019-01-10] MEDS: GABAPENTIN 400 MG CAP PO SCH (08:32)
[2019-01-10 10:00] LABS: Anion Gap 9 mmol/L; Blood Urea Nitrogen 3 mg/dL (7-17); Calcium 9.2 mg/dL (8.4-10.2); Carbon Dioxide 25 mmol/L (22-30); Chloride 108 mmol/L (98-107); Glucose 122 mg/dL (74-99); Sodium 142 mmol/L (137-145)
[2019-01-10 10:02] LABS: Potassium 3.4 mmol/L (3.5-5.1)
[2019-01-10 10:10] LABS: Basophils % (A) 1 %; Eosinophils # (A) 0.2 k/uL (0-0.7); Eosinophils % (A) 4 %; HCT 37.2 % (34.0-46.0); HGB 11.7 gm/dL (11.4-16.0); Hypochromasia Slight; Lymphocytes # (A) 1.3 k/uL (1.0-4.8); Lymphocytes % (A) 22 %; MCH 30.2 pg (25.0-35.0); MCHC 31.4 g/dL (31.0-37.0); MCV 96.1 fL (80.0-100.0); Monocytes # (A) 0.6 k/uL (0-1.0); Monocytes % (A) 10 %; Neutrophils # (A) 3.8 k/uL (1.3-7.7); Neutrophils % (A) 62 %; Platelet Count 423 k/uL (150-450); RBC 3.87 m/uL (3.80-5.40); RDW 13.4 % (11.5-15.5); WBC 6.1 k/uL (3.8-10.6)
[2019-01-10] MEDS ORDERED: Potassium Replacement Protocol 1 EACH MISC MISCELLANE PRN (10:43)
[2019-01-10] MEDS: 0.9% NACL WITH KCL 40 MEQ/L 1,000 ML IV SCH (10:48)
--- NOTE | 2019-01-10 11:28 | P.DS ---
Providers Date of admission: 01/07/19 11:37 Attending physician: Solitario Thao MD Primary care physician: [facility] Course: Final diagnosis Acute UTI with sepsis secondary to E. coli present on admission Change in mental status weakness metabolic considerably secondary to UTI High creatinine with a mild acute renal failure possibly prerenal acute tubular necrosis Possible hypothyroidism with previous the elevated TSH and decreased T3 on increased dose of Synthroid History of atrial fibrillation CVA TIA Dementia Hypertension DJD Pneumonia Migraine Laryngeal TIA DJD history of depression Spondylosis full code History of present illness this 88-year-old woman with a past medical history multiple medical problems was admitted with change in mental status patient was found to have UTI. Patient was treated with IV antibiotics. Patient also had features of hypothyroidism. Synthroid dose was increased. Patient improved significantly. Patient be discharged in a stable condition with guarded prognosis to [facility]. Total time taken is 35 minutes. On exam vitals stable. Cardio S1-S2 normal. Respirator system clear to auscultation. Abdomen soft nontender. Nervous system mild diffuse weakness. Plan - Discharge Summary Discharge Rx Participant: No New Discharge Prescriptions: New Acetaminophen Tab [Tylenol] 650 mg PO Q6HR PRN tab PRN Reason: Mild Pain Or Fever > 100.5 Cefuroxime Axetil [Ceftin] 500 mg PO BID #10 tab Folic Acid 1 mg PO DAILY@1200 tab Levothyroxine Sodium [Synthroid] 125 mcg PO DAILY@0630 tab Pantoprazole [Protonix] 40 mg PO AC-BRKFST tablet. Thiamine [Vitamin B-1] 100 mg PO DAILY@1200 tab Continue Lisinopril [Zestril] 5 mg PO HS Lisinopril [Zestril] 10 mg PO DAILY DULoxetine HCL [Cymbalta] 30 mg PO BID Vit C/E/Zn/Coppr/Lutein/Zeaxan [Preservision Areds 2 Softgel] 1 cap PO DAILY Cholecalciferol [Vitamin D3] 1,000 unit PO DAILY Ascorbic Acid [Vitamin C] 500 mg PO DAILY Pravastatin Sodium [Pravachol] 10 mg PO DAILY Mirtazapine [Remeron] 15 mg PO HS Ferrous Sulfate [Iron (65 MG Elemental)] 325 mg PO DAILY Gabapentin [Neurontin] 400 mg PO BID #6 cap Discontinued oxyCODONE-APAP 10-325MG [Percocet 10-325 mg] 1 tab PO Q12H Levothyroxine Sodium [Synthroid] 88 mcg PO DAILY Discharge Medication List Lisinopril [Zestril] 5 mg PO HS 05/27/16 [History] Lisinopril [Zestril] 10 mg PO DAILY 06/14/16 [History] DULoxetine HCL [Cymbalta] 30 mg PO BID 06/27/16 [History] Ascorbic Acid [Vitamin C] 500 mg PO DAILY 11/25/18 [History] Cholecalciferol [Vitamin D3] 1,000 unit PO DAILY 11/25/18 [History] Mirtazapine [Remeron] 15 mg PO HS 11/25/18 [History] Pravastatin Sodium [Pravachol] 10 mg PO DAILY 11/25/18 [History] Vit C/E/Zn/Coppr/Lutein/Zeaxan [Preservision Areds 2 Softgel] 1 cap PO DAILY 05/08 [History] Ferrous Sulfate [Iron (65 MG Elemental)] 325 mg PO DAILY 01/06/19 [History] Acetaminophen Tab [Tylenol] 650 mg PO Q6HR PRN tab 01/09/19 [Rx] Cefuroxime Axetil [Ceftin] 500 mg PO BID #10 tab 01/09/19 [Rx] Folic Acid 1 mg PO DAILY@1200 tab 01/09/19 [Rx] Gabapentin [Neurontin] 400 mg PO BID #6 cap 01/09/19 [Rx] Levothyroxine Sodium [Synthroid] 125 mcg PO DAILY@0630 tab 01/09/19 [Rx] Pantoprazole [Protonix] 40 mg PO AC-BRKFST tablet. 01/09/19 [Rx] Thiamine [Vitamin B-1] 100 mg PO DAILY@1200 tab 01/09/19 [Rx] Follow up Appointment(s)/Referral(s): Jacob Shepard DO [Primary Care Provider] - 3 Days Activity/Diet/Wound Care/Special Instructions: Medi PH Diet: regular Activity: as tolerated cbc,bmp in 3 days. Discharge Disposition: TRANSFER TO SNF/ECF
[2019-01-10] MEDS: POTASSIUM CHLORIDE ER 20 MEQ TAB.ER PO SCH ×2 (11:36→12:23)
[2019-01-10 15:27] VITALS: BP 166/82; PULSE 82; TEMP 98.5
== END 2019-01-10 16:34 | DRG 871 ==
LOC: EC 15:09 → 4MS4W 18:32 → OBSVTOIN 01-07 11:37
PROVIDERS: ADMIT Internal Medicine; ATTEND Internal Medicine
DX: A41.51 Sepsis due to Escherichia coli [E. coli] (principal); G93.41 Metabolic encephalopathy; N17.0 Acute kidney failure with tubular necrosis; N39.0 Urinary tract infection, site not specified; E03.9 Hypothyroidism, unspecified; F03.90 Unspecified dementia, unspecified severity, without behavioral disturbance, psychotic disturbance, mood disturbance, and anxiety; I10 Essential (primary) hypertension; I48.91 Unspecified atrial fibrillation; Z86.73 Personal history of transient ischemic attack (TIA), and cerebral infarction without residual deficits; Z87.01 Personal history of pneumonia (recurrent); M47.9 Spondylosis, unspecified; Z79.890 Hormone replacement therapy; Z79.899 Other long term (current) drug therapy; Z82.49 Family history of ischemic heart disease and other diseases of the circulatory system; Z91.81 History of falling; Z88.8 Allergy status to other drugs, medicaments and biological substances; F32.9 Major depressive disorder, single episode, unspecified; M19.90 Unspecified osteoarthritis, unspecified site
CPT/HCPCS: 36415; 51701; 70450; 71046; 72100; 72170; 80048; 80053; 80061; 81001; 82550; 82553; 83605; 83735; 84132; 84439; 84443; 84481; 84484; 85025; 85610; 85730; 87040; 87077; 87086; 87186; 87324; 93005; 93306; 96360; 96361; 99291

== ENCOUNTER → 2019-03-05 | Outpatient (CLI) | payer MEDICARE, BC ==
--- NOTE | 2019-03-05 22:28 | CT ---
EXAMINATION TYPE: CT lumbar spine wo con DATE OF EXAM: 03/05/2019 5:12 PM COMPARISON: Lumbar spine x-ray January 06, 2019. HISTORY: low back pain X many years. no injury specified. CT DLP: 961 mGycm Automated exposure control for dose reduction was used. Unenhanced CT of the lumbar spine was performed. Bone and soft tissue window settings are submitted as well as coronal and sagittal reconstructions. There are 5 lumbar type vertebra redemonstrated. There is persistent dextroconvex scoliosis centered at L2 level and reactive levoconvex scoliosis centered L5 level seen on coronal images. There is grad e 1 anterolisthesis of L4 on L5 measuring 9 to 10 mm on sagittal images redemonstrated. Vertebral bod y heights are maintained. There is mild to moderate left-sided disc space narrowing T12-L1 level with moderate disc space narrowing and vacuum disc phenomenon left L1-L2 level. There is moderate to adva nced disc space narrowing most prominent left L2-L3 level. There is moderate disc space narrowing and vacuum disc phenomenon L3-L4 level. There is moderate to advanced disc space narrowing with vacuum d isc phenomenon right L4-L5 level. There is moderate right lateral spurring and sclerosis L4-L5 level. There is mild to moderate left lateral spurring L2-L3 level. Review of axial images shows T12-L1 and L1-L2 levels 2. Within normal limits. Axial images at the L2-L3 level show moderate facet degenerative changes. There are spinous process r esection. There is moderate broad disc bulge. There is some effacement of the anterior thecal sac. Th ere is asymmetric moderate to severe left-sided neural foraminal narrowing. There is prominent Schmor l node superior L3 endplate. Axial images at L3-L4 level show bilateral laminectomy defects and spinous process resection. There i s right paracentral/foraminal disc protrusion axial image 53. There is moderate facet arthropathy. Th ere is moderate to severe bilateral neural foraminal narrowing. Axial images at L4-L5 level show spondylolisthesis and disc protrusion. There is moderate to advanced facet arthropathy. There is spinous process resection. There is moderate left inferior and severe ri ght-sided neural foraminal narrowing encroaching on right L4 nerve sagittal image 26. Axial images at the L5-S1 level show advanced facet arthropathy bilaterally. There is small central d isc protrusion. Bilateral neural foramina are patent. There is moderate calcified plaque and tortuous abdominal aorta. There is prominent debris filled sto mach with air-fluid level, correlate clinically to exclude gastroparesis as this believe to extends i nto the left lower quadrant. IMPRESSION: Scoliosis with prior posterior surgery and multilevel fairly advanced degenerative change s as detailed above.
== END | disposition home or self-care (01) ==
LOC: RADCTMAIN 16:37
PROVIDERS: ATTEND Family Medicine
DX: M47.816 Spondylosis without myelopathy or radiculopathy, lumbar region (principal); M41.86 Other forms of scoliosis, lumbar region; Z98.890 Other specified postprocedural states
CPT/HCPCS: 72131

== ENCOUNTER 2019-04-13 12:55 | Inpatient (IN) | payer MEDICARE, BC ==
--- NOTE | 2019-04-13 13:25 | ED ---
Fall HPI - General Source: patient, RN notes reviewed Mode of arrival: wheelchair Limitations: no limitations <Lalo York - Last Filed: 04/13/19 17:21> <Yaquelin Jin - Last Filed: 04/13/19 19:44> - General Chief Complaint: Fall Stated Complaint: RT LEG INJURY, POSS Fx, RT HAND SWELLING Time Seen by Provider: 04/13/19 13:11 - History of Present Illness Initial Comments: 88-year-old female presents emergency Department with chief complaint of difficulty urinating. Patient states that she fell yesterday after she got a dose sitting and states that she just tripped and fell. Patient was seen at [facility] and was diagnosed with a right wrist sprain in which they wrapped it with an Juan Diego wrap and now has caused her hand as well. Patient also states that she was diagnosed with left tibial plateau fracture and she is unable to ambulate and she has become more weak because of this. Patient also been treated for urinary tract infection on Bactrim. Family is concerned given that she cannot take care of herself and they are unable to help for. Patient denies any fevers or chills no chest pain or shortness of breath. (Lalo York) - Related Data Home Medications Medication Instructions Recorded Confirmed Lisinopril [Zestril] 5 mg PO HS 05/27/16 04/13/19 Lisinopril [Zestril] 10 mg PO DAILY 06/14/16 04/13/19 DULoxetine HCL [Cymbalta] 30 mg PO BID 06/27/16 04/13/19 Ascorbic Acid [Vitamin C] 500 mg PO DAILY 11/25/18 04/13/19 Cholecalciferol [Vitamin D3 (25 5,000 unit PO DAILY 11/25/18 04/13/19 Mcg = 1000 Iu)] Mirtazapine [Remeron] 15 mg PO HS 11/25/18 04/13/19 Pravastatin Sodium [Pravachol] 10 mg PO DAILY 11/25/18 04/13/19 Vit C/E/Zn/Coppr/Lutein/Zeaxan 1 cap PO DAILY 11/25/18 04/13/19 [Preservision Areds 2 Softgel] Albuterol Inhaler [Ventolin Hfa 2 puff INHALATION RT-Q4H PRN 04/13/19 04/13/19 Inhaler] Benzonatate [Tessalon Perles] 100 mg PO TID PRN 04/13/19 04/13/19 Folic Acid 0.8 mg PO DAILY 04/13/19 04/13/19 L.acidoph,Paracasei, B.lactis 1 cap PO DAILY 04/13/19 04/13/19 [Probiotic] Omeprazole 20 mg PO DAILY 04/13/19 04/13/19 Sulfamethox-Tmp 800-160Mg [Bactrim 1 tab PO Q12H 04/13/19 04/13/19 DS 800-160 mg] oxyCODONE-APAP 10-325MG [Percocet 1 tab PO BID 04/13/19 04/13/19 10-325 mg] Previous Rx's Medication Instructions Recorded Gabapentin [Neurontin] 400 mg PO BID #6 cap 01/09/19 Levothyroxine Sodium [Synthroid] 125 mcg PO DAILY@0630 tab 01/09/19 Allergies Allergy/AdvReac Type Severity Reaction Status Date / Time amiodarone HCl Allergy Unknown Verified 04/13/19 15:25 [From Cordarone] epinephrine Allergy Unknown Verified 04/13/19 15:25 metoclopramide HCl Allergy Unknown Verified 04/13/19 15:25 [From Reglan] nifedipine [From Procardia] Allergy Unknown Verified 04/13/19 15:25 nitrofurantoin Allergy Unknown Verified 04/13/19 15:25 macrocrystalline [From Macrodantin] propafenone HCl Allergy Unknown Verified 04/13/19 15:25 [From Rythmol] Quinolones Allergy Unknown Verified 04/13/19 15:25 novacaine Allergy Unknown Uncoded 04/13/19 13:07 Review of Systems ROS Other: All systems not noted in ROS Statement are negative. <Lalo York M - Last Filed: 04/13/19 17:21> ROS Other: All systems not noted in ROS Statement are negative. <Yaquelin Jin - Last Filed: 04/13/19 19:44> ROS Statement: Those systems with pertinent positive or pertinent negative responses have been documented in the HPI. Past Medical History Past Medical History: Atrial Fibrillation, CVA/TIA, Dementia, Hypertension, Osteoarthritis (OA), Pneumonia, Thyroid Disorder Additional Past Medical History / Comment(s): hypothyroid, migraine cephalgia, irregular heart rate, TIA, neuropathy History of Any Multi-Drug Resistant Organisms: None Reported Past Surgical History: Appendectomy, Back Surgery, Section, Orthopedic Surgery, Tonsillectomy Additional Past Surgical History / Comment(s): Back surgery failed stenosis repair, pelvic area reconstruction surgery 3x post vaginal delivery of first child, hammer toe repair with pin and removal. Past Anesthesia/Blood Transfusion Reactions: No Reported Reaction Past Psychological History: Depression Smoking Status: Never smoker Past Alcohol Use History: None Reported Past Drug Use History: None Reported - Past Family History Mother Family Medical History: Hypertension Father Family Medical History: CVA/TIA <Lalo York - Last Filed: 04/13/19 17:21> General Exam Limitations: no limitations General appearance: alert, in no apparent distress Head exam: Present: atraumatic, normocephalic, normal inspection Neck exam: Present: normal inspection. Absent: tenderness, meningismus, l ymphadenopathy Respiratory exam: Present: normal lung sounds bilaterally. Absent: respiratory distress, wheezes, rales, rhonchi, stridor Cardiovascular Exam: Present: regular rate, normal rhythm, normal heart sounds. Absent: systolic murmur, diastolic murmur, rubs, gallop, clicks Extremities exam: Present: other (Right hand and wrist there is moderate amount of ecchymosis and swelling of the right hand Juan Diego wrap as noted which was removed, cap refill less than 2 seconds there is minimal tenderness, left knee limited range of motion moderate medial tenderness, mild swelling neurovascular intact no tenderness about or below left knee) Back exam: Absent: CVA tenderness (R), CVA tenderness (L) Neurological exam: Present: alert, oriented X3, CN II-XII intact, reflexes normal. Absent: motor sensory deficit Skin exam: Present: warm, dry, intact, normal color. Absent: rash <Lalo York M - Last Filed: 04/13/19 17:21> Course Vital Signs 04/13/19 04/13/19 04/13/19 13:03 14:32 14:49 Temperature 97.8 F Pulse Rate 88 76 Respiratory 16 16 Rate Blood Pressure 123/70 119/78 O2 Sat by Pulse 95 93 L 95 Oximetry 04/13/19 04/13/19 15:00 16:50 Temperature Pulse Rate 88 Respiratory 16 Rate Blood Pressure 119/78 149/100 O2 Sat by Pulse 94 L 92 L Oximetry Medical Decision Making - Lab Data Result diagrams: 04/13/19 15:32 04/13/19 15:32 <Lalo York - Last Filed: 04/13/19 17:21> - Lab Data Result diagrams: 04/13/19 15:32 04/13/19 15:32 <Yaquelin Jin - Last Filed: 04/13/19 19:44> - Medical Decision Making 88-year-old female presented emergency from for prior fall, knee pain unable take care of herself. Patient has evidence of tibial plateau fracture on CT. Patient will be admitted for 2 to plateau fracture unable to care for self, medical admission to medicine with consult to orthopedics. Patient has been Nataly recent urinary tract infection may be causing some weakness. (Ellie York) Patient care was discussed with Dr. Hawkins the [facility] hospitalist team who accepts the admission for elderly female with leg fracture requiring placement or assistance in self-care. (Yaquelin Jin) Disposition Is patient prescribed a controlled substance at d/c from ED?: No Time of Disposition: 17:22 <Lalo York - Last Filed: 04/13/19 17:21> <Yaquelin Jin - Last Filed: 04/13/19 19:44> Clinical Impression: Left medial tibial plateau fracture, UTI (urinary tract infection), Generalized weakness, Unable to ambulate Disposition: ADMITTED IP TO THIS HOSP Condition: Fair
--- NOTE | 2019-04-13 14:47 | CT ---
EXAMINATION TYPE: CT knee LT wo con DATE OF EXAM: 04/13/2019 COMPARISON: Plain film from outside institution 04/12/2019 HISTORY: Left knee pain post injury CT DLP: 108.1 mGycm Automated exposure control for dose reduction was used. Helical reconstructions through the left knee , coronal and sagittal reconstructions FINDINGS: There is some motion on the exam. Linear lucency is present medially as seen on plain film along the proximal tibia. Sclerosis along the proximal metaphysis of the right tibia is compatible wi th microtrabecular fractures. Calcification present along the menisci. No dislocation. Suprapatellar joint effusion is small. Underlying osteoarthritic changes present. Small ossific density present lateral to the lateral femoral condyle is well-corticated and not felt likely to be acute. IMPRESSION: There is a nondisplaced intra-articular fracture of the medial tibia proximally.
[2019-04-13 15:48] LABS: Basophils # (A) 0.1 k/uL (0-0.2); Basophils % (A) 0 %; Eosinophils # (A) 0.1 k/uL (0-0.7); Eosinophils % (A) 1 %; HCT 35.3 % (34.0-46.0); HGB 11.2 gm/dL (11.4-16.0); Lymphocytes # (A) 1.5 k/uL (1.0-4.8); Lymphocytes % (A) 10 %; MCH 29.5 pg (25.0-35.0); MCHC 31.7 g/dL (31.0-37.0); MCV 93.1 fL (80.0-100.0); Mean Platelet Volume 7.1; Monocytes # (A) 0.8 k/uL (0-1.0); Monocytes % (A) 5 %; Neutrophils # (A) 12.5 k/uL (1.3-7.7); Neutrophils % (A) 83 %; Platelet Count 459 k/uL (150-450); RBC 3.79 m/uL (3.80-5.40); RDW 13.1 % (11.5-15.5); WBC 15.1 k/uL (3.8-10.6)
[2019-04-13 15:55] LABS: ALT 16 U/L (9-52); AST 13 U/L (14-36); Albumin 3.8 g/dL (3.5-5.0); Alkaline Phosphatase 90 U/L (38-126); Anion Gap 8 mmol/L; Blood Urea Nitrogen 16 mg/dL (7-17); Calcium 9.9 mg/dL (8.4-10.2); Carbon Dioxide 27 mmol/L (22-30); Chloride 104 mmol/L (98-107); Glucose 90 mg/dL (74-99); Potassium 4.1 mmol/L (3.5-5.1); Sodium 139 mmol/L (137-145); Total Bilirubin 0.2 mg/dL (0.2-1.3)
[2019-04-13 15:56] LABS: INR 0.9 (<1.2); Partial Thromboplastin Time 25.1 sec (22.0-30.0); Prothrombin Time 9.8 sec (9.0-12.0)
[2019-04-13 17:22] VITALS: BMI 24.0
[2019-04-13] MEDS ORDERED: ALBUTEROL NEBULIZED 2.5 MG/3 ML INHALATION PRN (17:37)
[2019-04-13] MEDS ORDERED: BENZONATATE 100 MG CAP PO PRN (17:37)
--- NOTE | 2019-04-13 17:46 | P.HPIM ---
History of Present Illness Patient is a pleasant 88-year-old female came in with complaints of pain in the left leg found to have left tibial plateau fracture. Patient had a mechanical fall. Patient was recently diagnosed with urinary tract infection and was started on Bactrim recently. Since then patient has been getting more weaker. Patient wasn't really doesn't have any symptoms of dysuria or increased urinary frequency and suprapubic pain. Will not require any more antibiotic at this time. Review of Systems REVIEW OF SYSTEMS: CONSTITUTIONAL: No fever, no malaise, no fatigue. HEENT: No recent visual problems or hearing problems. Denied any sore throat. CARDIOVASCULAR: No chest pain, orthopnea, PND, no palpitations, no syncope. PULMONARY: No shortness of breath, no cough, no hemoptysis. GASTROINTESTINAL: No diarrhea, no nausea, no vomiting, no abdominal pain. NEUROLOGICAL: No headaches, no weakness, no numbness. HEMATOLOGICAL: Denies any bleeding or petechiae. GENITOURINARY: Denies any burning micturition, frequency, or urgency. MUSCULOSKELETAL/RHEUMATOLOGICAL: Mentioned above ENDOCRINE: Denies any polyuria or polydipsia. The rest of the 14-point review of systems is negative. Past Medical History Past Medical History: Atrial Fibrillation, CVA/TIA, Dementia, Hypertension, Osteoarthritis (OA), Pneumonia, Thyroid Disorder Additional Past Medical History / Comment(s): hypothyroid, migraine cephalgia, irregular heart rate, TIA, neuropathy History of Any Multi-Drug Resistant Organisms: None Reported Past Surgical History: Appendectomy, Back Surgery, Section, Orthopedic Surgery, Tonsillectomy Additional Past Surgical History / Comment(s): Back surgery failed stenosis repair, pelvic area reconstruction surgery 3x post vaginal delivery of first child, hammer toe repair with pin and removal. Past Anesthesia/Blood Transfusion Reactions: No Reported Reaction Past Psychological History: Depression Smoking Status: Never smoker Past Alcohol Use History: None Reported Past Drug Use History: None Reported - Past Family History Mother Family Medical History: Hypertension Father Family Medical History: CVA/TIA Medications and Allergies Home Medications Medication Instructions Recorded Confirmed Type Lisinopril [Zestril] 5 mg PO HS 05/27/16 04/13/19 History Lisinopril [Zestril] 10 mg PO DAILY 06/14/16 04/13/19 History DULoxetine HCL [Cymbalta] 30 mg PO BID 06/27/16 04/13/19 History Ascorbic Acid [Vitamin C] 500 mg PO DAILY 11/25/18 04/13/19 History Cholecalciferol [Vitamin D3 (25 5,000 unit PO DAILY 11/25/18 04/13/19 History Mcg = 1000 Iu)] Mirtazapine [Remeron] 15 mg PO HS 11/25/18 04/13/19 History Pravastatin Sodium [Pravachol] 10 mg PO DAILY 11/25/18 04/13/19 History Vit C/E/Zn/Coppr/Lutein/Zeaxan 1 cap PO DAILY 11/25/18 04/13/19 History [Preservision Areds 2 Softgel] Gabapentin [Neurontin] 400 mg PO BID #6 cap 01/09/19 04/13/19 Rx Levothyroxine Sodium [Synthroid] 125 mcg PO DAILY@0630 tab 01/09/19 04/13/19 Rx Albuterol Inhaler [Ventolin Hfa 2 puff INHALATION RT-Q4H PRN 04/13/19 04/13/19 History Inhaler] Benzonatate [Tessalon Perles] 100 mg PO TID PRN 04/13/19 04/13/19 History Folic Acid 0.8 mg PO DAILY 04/13/19 04/13/19 History L.acidoph,Paracasei, B.lactis 1 cap PO DAILY 04/13/19 04/13/19 History [Probiotic] Omeprazole 20 mg PO DAILY 04/13/19 04/13/19 History Sulfamethox-Tmp 800-160Mg [Bactrim 1 tab PO Q12H 04/13/19 04/13/19 History DS 800-160 mg] oxyCODONE-APAP 10-325MG [Percocet 1 tab PO BID 04/13/19 04/13/19 History 10-325 mg] Allergies Allergy/AdvReac Type Severity Reaction Status Date / Time amiodarone HCl Allergy Unknown Verified 04/13/19 15:25 [From Cordarone] epinephrine Allergy Unknown Verified 04/13/19 15:25 metoclopramide HCl Allergy Unknown Verified 04/13/19 15:25 [From Reglan] nifedipine [From Procardia] Allergy Unknown Verified 04/13/19 15:25 nitrofurantoin Allergy Unknown Verified 04/13/19 15:25 macrocrystalline [From Macrodantin] propafenone HCl Allergy Unknown Verified 04/13/19 15:25 [From Rythmol] Quinolones Allergy Unknown Verified 04/13/19 15:25 novacaine Allergy Unknown Uncoded 04/13/19 13:07 Physical Exam Vitals: Vital Signs Temp Pulse Resp BP Pulse Ox 04/13/19 16:50 88 16 149/100 92 L 04/13/19 15:00 119/78 94 L 04/13/19 14:49 76 16 119/78 95 04/13/19 14:32 93 L 04/13/19 13:03 97.8 F 88 16 123/70 95 Intake and Output 04/13/19 04/13/19 04/13/19 06:59 14:59 22:59 Other: Weight 63.503 kg PHYSICAL EXAMINATION: GENERAL: The patient is alert and oriented x3, not in any acute distress. Well developed, well nourished. HEENT: Pupils are round and equally reacting to light. EOMI. No scleral icterus. No conjunctival pallor. Normocephalic, atraumatic. No pharyngeal erythema. No thyromegaly. CARDIOVASCULAR: S1 and S2 present. No murmurs, rubs, or gallops. PULMONARY: Chest is clear to auscultation, no wheezing or crackles. ABDOMEN: Soft, nontender, nondistended, normoactive bowel sounds. No palpable organomegaly. MUSCULOSKELETAL: Left leg swollen EXTREMITIES: No cyanosis, clubbing, or pedal edema. NEUROLOGICAL: Gross neurological examination did not reveal any focal deficits. SKIN: No rashes. Results CBC & Chem 7: 04/13/19 15:32 04/13/19 15:32 Labs: Abnormal Lab Results - Last 24 Hours (Table) 04/13/19 04/13/19 Range/Units 15:32 15:32 WBC 15.1 H (3.8-10.6) k/uL RBC 3.79 L (3.80-5.40) m/uL Hgb 11.2 L (11.4-16.0) gm/dL Plt Count 459 H (150-450) k/uL Neutrophils # 12.5 H (1.3-7.7) k/uL AST 13 L (14-36) U/L Assessment and Plan Plan: -Tibial plateau fracture: Orthopedic surgery will be consulted patient was started on nonsteroidal anti-inflammatory disorder pain. Patient may need placement to subacute rehabilitation patient has generalized weakness and left a mechanical fall. recent --urinary tract infection no evidence of urinary tract infection at this time clinically. Will not require any antibiotics -Leukocytosis: Secondary to tibial plateau fracture and reactive in nature -Hypertension -Past esophageal reflux disease -hyperlipidemia -Depression -Peripheral neuropathy chronic low back pain. 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
[2019-04-13 19:47] LABS: Appearance,Urine Clear (Clear); Bacteria,Urine Rare /hpf; Bilirubin,Urine Negative (Negative); Blood,Urine Negative (Negative); Color,Urine Light Yellow; Glucose,Urine (UA) Negative (Negative); Ketones,Urine Negative (Negative); Leukocyte Esterase,Urine Large (Negative); Nitrite,Urine Negative (Negative); PH, Urine 6.5 (5.0-8.0); Protein,Urine Negative (Negative); Specific Gravity,Urine 1.009 (1.001-1.035); Squamous Epithelial Cell,Urine 1 /hpf (0-4); Urobilinogen,Urine <2.0 mg/dL (<2.0)
[2019-04-13] MEDS: GABAPENTIN 400 MG CAP PO SCH (21:46)
[2019-04-13] MEDS: LISINOPRIL 5 MG TAB PO SCH (21:46)
[2019-04-13] MEDS: DULoxetine HCL 30 MG CAPSULE.DR PO SCH (21:46)
[2019-04-13] MEDS: HEPARIN SODIUM,PORCINE 5,000 UNIT/ML 1 ML VIAL SQ SCH (21:46)
[2019-04-13] MEDS: MIRTAZAPINE 15 MG TAB PO SCH (21:46)
[2019-04-14] MEDS: ACETAMINOPHEN TAB 325 MG TAB PO PRN (01:45)
[2019-04-14] MEDS: LEVOTHYROXINE 125 MCG TAB PO SCH (06:12)
[2019-04-14] MEDS: CHOLECALCIFEROL 1,000 UNIT TAB PO SCH (07:18)
[2019-04-14] MEDS: FOLIC ACID 1 MG TAB PO SCH (07:18)
[2019-04-14] MEDS: PRAVASTATIN SODIUM 20 MG TAB PO SCH (07:18)
[2019-04-14] MEDS: GABAPENTIN 400 MG CAP PO SCH ×2 (07:18→21:39)
[2019-04-14] MEDS: HEPARIN SODIUM,PORCINE 5,000 UNIT/ML 1 ML VIAL SQ SCH ×2 (07:19→21:39)
[2019-04-14] MEDS: DULoxetine HCL 30 MG CAPSULE.DR PO SCH ×2 (07:22→21:39)
[2019-04-14] MEDS: PANTOPRAZOLE 40 MG TABLET PO SCH (07:22)
[2019-04-14] MEDS: LISINOPRIL 10 MG TAB PO SCH (12:56)
--- NOTE | 2019-04-14 13:32 | P.CNOR ---
<Maxime Ge - Last Filed: 04/14/19 13:27> History of Present Illness - [facility] Consult date: 04/14/19 Requesting physician: Lalo York Consult reason: fracture (Left medial tibial plateau fracture), other (Status post fall) History of present illness: Patient is a very pleasant 88-year-old female who is seen and examined the bedside for further evaluation for her left knee. She states she sustained a fall couple days ago suffering a injury to her knee at that time. She also fell on her right wrist causing significant bruising. She presented to an urgent care for further treatment and evaluation. She was diagnosed with a tibial plateau fracture at that time. She was not found to have a fracture at her wrist. She states she is having difficulty with mobility so she was brought to the emergency department for further evaluation. CT imaging confirmed a tibial plateau fracture on the left. Patient states she was recently placed on bed rest until further evaluation. Previously she states she was ambulating to the restroom without significant difficulty. She does continue to have some left knee pain. Her right wrist pain has improved but she continues to have significant bruising at the right wrist. She has no other complaints. Patient states she would like to be discharged home at the time of discharge. Nursing states family does not feel she is able to adequately care for herself at home and they're discussing the possibility of discharged to a rehabilitation facility. Patient was also previously diagnosed with a urinary tract infection started on an antibiotic. Medicine states patient does not have any dysuria symptoms, increased urinary frequency, or suprapubic pain and are not currently planning for antibiotic treatment for urinary tract infection during her admis luis m. Patient states at the bedside she is not having any difficulty with urination. Patient has a past medical history which includes atrial fibrillation, CVA/TIA, dementia, hypertension Past Medical History Past Medical History: Atrial Fibrillation, CVA/TIA, Dementia, Hypertension, Osteoarthritis (OA), Pneumonia, Thyroid Disorder Additional Past Medical History / Comment(s): hypothyroid, migraine cephalgia, irregular heart rate, TIA, neuropathy History of Any Multi-Drug Resistant Organisms: None Reported Past Surgical History: Appendectomy, Back Surgery, Section, Orthopedic Surgery, Tonsillectomy Additional Past Surgical History / Comment(s): Back surgery failed stenosis repair, pelvic area reconstruction surgery 3x post vaginal delivery of first child, hammer toe repair with pin and removal. Past Anesthesia/Blood Transfusion Reactions: No Reported Reaction Past Psychological History: Depression Smoking Status: Never smoker Past Alcohol Use History: None Reported Past Drug Use History: None Reported - Past Family History Mother Family Medical History: Hypertension Father Family Medical History: CVA/TIA Medications and Allergies Home Medications Medication Instructions Recorded Confirmed Type Lisinopril [Zestril] 5 mg PO HS 05/27/16 04/13/19 History Lisinopril [Zestril] 10 mg PO DAILY 06/14/16 04/13/19 History DULoxetine HCL [Cymbalta] 30 mg PO BID 06/27/16 04/13/19 History Ascorbic Acid [Vitamin C] 500 mg PO DAILY 11/25/18 04/13/19 History Cholecalciferol [Vitamin D3 (25 5,000 unit PO DAILY 11/25/18 04/13/19 History Mcg = 1000 Iu)] Mirtazapine [Remeron] 15 mg PO HS 11/25/18 04/13/19 History Pravastatin Sodium [Pravachol] 10 mg PO DAILY 11/25/18 04/13/19 History Vit C/E/Zn/Coppr/Lutein/Zeaxan 1 cap PO DAILY 11/25/18 04/13/19 History [Preservision Areds 2 Softgel] Gabapentin [Neurontin] 400 mg PO BID #6 cap 01/09/19 04/13/19 Rx Levothyroxine Sodium [Synthroid] 125 mcg PO DAILY@0630 tab 01/09/19 04/13/19 Rx Albuterol Inhaler [Ventolin Hfa 2 puff INHALATION RT-Q4H PRN 04/13/19 04/13/19 History Inhaler] Benzonatate [Tessalon Perles] 100 mg PO TID PRN 04/13/19 04/13/19 History Folic Acid 0.8 mg PO DAILY 04/13/19 04/13/19 History L.acidoph,Paracasei, B.lactis 1 cap PO DAILY 04/13/19 04/13/19 History [Probiotic] Omeprazole 20 mg PO DAILY 04/13/19 04/13/19 History Sulfamethox-Tmp 800-160Mg [Bactrim 1 tab PO Q12H 04/13/19 04/13/19 History DS 800-160 mg] oxyCODONE-APAP 10-325MG [Percocet 1 tab PO BID 04/13/19 04/13/19 History 10-325 mg] Allergies Allergy/AdvReac Type Severity Reaction Status Date / Time amiodarone HCl Allergy Unknown Verified 04/13/19 15:25 [From Cordarone] epinephrine Allergy Unknown Verified 04/13/19 15:25 metoclopramide HCl Allergy Unknown Verified 04/13/19 15:25 [From Reglan] nifedipine [From Procardia] Allergy Unknown Verified 04/13/19 15:25 nitrofurantoin Allergy Unknown Verified 04/13/19 15:25 macrocrystalline [From Macrodantin] propafenone HCl Allergy Unknown Verified 04/13/19 15:25 [From Rythmol] Quinolones Allergy Unknown Verified 04/13/19 15:25 novacaine Allergy Unknown Uncoded 04/13/19 13:07 Physical Examination Physical Exam: Patient is awake, alert, and oriented 3 Vital signs stable Good chest excursion with deep inspiration and expiration Abdomen soft nontender No signs or symptoms of DVT; no calf pain Evidence of some mild swelling without significant erythema or significant bruising over the left medial tibial plateau Some pain with palpation of the left medial tibial plateau No pain with palpation over the left femur or distal left tibia Patient is able to perform dorsiflexion, plantarflexion, and extensor hallucis longus on the left without significant difficulty Neurovascularly intact left lower extremity Adequate range of motion of the right wrist, elbow, and fingers of the right hand without significant difficulty Evidence of significant bruising over the right hand, right wrist, and right forearm extending to the palmar side of the wrist Results Pertinent studies: CT of the left knee taken on 04/13/2019: Nondisplaced intra-articular fracture of the left medial tibia proximally; no evidence of fracture dislocation; small suprapatellar joint effusion; underlying osteoarthritic changes present - Labs Labs: Abnormal Lab Results - Last 24 Hours (Table) 04/13/19 04/13/19 04/13/19 Range/Units 15:32 15:32 19:33 WBC 15.1 H (3.8-10.6) k/uL RBC 3.79 L (3.80-5.40) m/uL Hgb 11.2 L (11.4-16.0) gm/dL Plt Count 459 H (150-450) k/uL Neutrophils # 12.5 H (1.3-7.7) k/uL AST 13 L (14-36) U/L Ur Leukocyte Esterase Large H (Negative) Urine WBC 111 H (0-5) /hpf Urine Bacteria Rare H (None) /hpf Microbiology - Last 24 Hours (Table) 04/13/19 19:33 Urine Culture - Preliminary Urine,Voided H & H 04/13/19 Range/Units 15:32 Hgb 11.2 L (11.4-16.0) gm/dL Hct 35.3 (34.0-46.0) % Coagulation 04/13/19 Range/Units 15:32 INR 0.9 (<1.2) Result Diagrams: 04/13/19 15:32 04/13/19 15:32 Assessment and Plan Assessment: Assessment: Left nondisplaced medial tibial plateau fracture Left knee pain Mild left medial knee swelling over the tibial plateau Status post fall Significant bruising of the right wrist status post fall without apparent fracture History of atrial fibrillation, CVA/TIA, dementia, hypertension (1) Status post fall Current Visit: Yes Status: Acute Code(s): Z91.81 - HISTORY OF FALLING SNOMED Code(s): 065454417 (2) Left knee pain Current Visit: Yes Status: Acute Code(s): M25.562 - PAIN IN LEFT KNEE SNOMED Code(s): 24525338 (3) Left medial tibial plateau fracture Current Visit: Yes Status: Acute Code(s): S82.132A - DISP FX OF MEDIAL CONDYLE OF LEFT TIBIA, INIT FOR CLOS FX SNOMED Code(s): 914211008 (4) History of atrial fibrillation Current Visit: Yes Status: Acute Code(s): Z86.79 - PERSONAL HISTORY OF OTHER DISEASES OF THE CIRCULATORY SYSTEM SNOMED Code(s): 637690653 (5) History of dementia Current Visit: Yes Status: Acute Code(s): Z86.59 - PERSONAL HISTORY OF OTHER MENTAL AND BEHAVIORAL DISORDERS SNOMED Code(s): 728525922 (6) History of CVA (cerebrovascular accident) Current Visit: Yes Status: Acute Code(s): Z86.73 - PRSNL HX OF TIA (TIA), AND CEREB INFRC W/O RESID DEFICITS SNOMED Code(s): 654458065 (7) History of hypertension Current Visit: Yes Status: Acute Code(s): Z86.79 - PERSONAL HISTORY OF OTHER DISEASES OF THE CIRCULATORY SYSTEM SNOMED Code(s): 910990844 Plan: Plan: 1. Patient has been discussed in detail with Dr. Khan. After reviewing of imaging, physical examination the patient, and further discussion with the patient, we'll plan to continue conservative treatment at this time in regards to her left nondisplaced medial tibial plateau fracture. Patient states she has been placed on bedrest for the left lower extremity. We discussed she may be toe touch weightbearing on the left lower extremity currently. A prescription for a walker has been written, signed, and provided to case management to filtering machine tender helper in ambulation. We will plan to obtain a knee immobilizer for the left lower extremity. Prescription has been written, signed, and provide his case management for this knee immobilizer. We discussed with her knee immobilizer intact she may ambulate and weight-bear as tolerated on her left lower extremity with the assistance of physical therapy or the nursing staff. Once her brace is delivered and fitted appropriately, patient is clear for discharge from orthopedic spine standpoint. We discussed she should keep this brace intact during mobility and increased activities. She does not have to sleep or bath with this brace intact. Patient will plan to follow-up with Dr. Khan in the outpatient setting in approximately 1 week at [facility]. We are not currently planning for treatment or further evaluation in regards to her right wrist. Patient has been discussed in detail with Dr. Kahn and he agrees with this plan. 2. Patient will continue be seeing examined by medicine for her other medical diagnoses Time with Patient: Greater than 30 (Including obtaining history, physical examination, reviewing of imaging, and dictation.) <Cricket Khan - Last Filed: 04/15/19 10:40> Results - Labs Labs: Abnormal Lab Results - Last 24 Hours (Table) 04/15/19 04/15/19 Range/Units 07:37 07:37 Plt Count 519 H (150-450) k/uL Glucose 112 H (74-99) mg/dL Microbiology - Last 24 Hours (Table) 04/13/19 19:33 Urine Culture - Preliminary Urine,Voided Gram Neg Bacilli H & H 04/13/19 04/15/19 Range/Units 15:32 07:37 Hgb 11.2 L 12.5 (11.4-16.0) gm/dL Hct 35.3 39.7 (34.0-46.0) % Coagulation 04/13/19 Range/Units 15:32 INR 0.9 (<1.2) Result Diagrams: 04/15/19 07:37 04/15/19 07:37 Assessment and Plan Plan: Reviewed and agree with above findings. Discussed case in detail and agree with plan as described. The patient was subsequently seen and examined by me as well. S: The patient recalls the fall. States pain is well controlled and localized to the knee. No significant pain in the wrist O: Mild edema and focal tenderness to palpation at the medial tibial plateau. Mild pain but no laxity with varus and valgus stress. Significant ecchymosis around the right distal radius but no bony tenderness to palpation. A: 1. Nondisplaced impaction fracture of the left medial tibial plateau 2. Dementia P: Discussed diagnosis and imaging findings with the patient. Recommended non- surgical treatment. She may remove the knee immobilizer at rest but should wear this when ambulating. We will begin with touchdown weightbearing with a walker and up with assistance only. We will begin physical therapy to assess mobilization and safety for discharge planning. She may progress to 25% weightbearing if pain level remains mild and tolerable. Follow-up outpatient in 7-10 days for reevaluation and repeat x-rays. Cricket Khan D.O. [facility]
--- NOTE | 2019-04-14 16:59 | P.PN ---
Subjective 88-year-old pleasant female was admitted for left tibial plateau fracture after mechanical fall while patient will have any immobilizer will need to be discharged to subacute rehabilitation. Patient's pain is well controlled. Constitutional: Denied any fatigue denied any fever. Cardio vascular: denied any chest pain, palpitations Gastrointestinal denied any nausea vomiting Pulmonary: Denied any shortness of breath cough Neurologic denied any new focal deficits All inpatient medications were reviewed and appropriate changes in these medications as dictated in the interval history and assessment and plan. Objective - Vital Signs Vital signs: Vital Signs Temp 98.6 F 04/14/19 14:45 Pulse 86 04/14/19 14:45 Resp 17 04/14/19 16:00 BP 148/82 04/14/19 14:45 Pulse Ox 94 L 04/14/19 14:45 Intake & Output 04/13/19 04/14/19 04/14/19 18:59 06:59 18:59 Intake Total 150 240 Output Total 2 Balance 148 240 Weight 63.503 kg Intake: Oral 150 240 Output: Urine/Stool Mix 2 Other: Voiding Method Bedpan Bedside Commode # Voids 1 8 - Exam PHYSICAL EXAMINATION: GENERAL: The patient is alert and oriented x3, not in any acute distress. Well developed, well nourished. HEENT: Pupils are round and equally reacting to light. EOMI. No scleral icterus. No conjunctival pallor. Normocephalic, atraumatic. No pharyngeal erythema. No thyromegaly. CARDIOVASCULAR: S1 and S2 present. No murmurs, rubs, or gallops. PULMONARY: Chest is clear to auscultation, no wheezing or crackles. ABDOMEN: Soft, nontender, nondistended, normoactive bowel sounds. No palpable organomegaly. MUSCULOSKELETAL: Left leg swollen EXTREMITIES: No cyanosis, clubbing, or pedal edema. NEUROLOGICAL: Gross neurological examination did not reveal any focal deficits. SKIN: No rashes. - Labs CBC & Chem 7: 04/13/19 15:32 04/13/19 15:32 Labs: Abnormal Lab Results - Last 24 Hours (Table) 04/13/19 Range/Units 19:33 Ur Leukocyte Esterase Large H (Negative) Urine WBC 111 H (0-5) /hpf Urine Bacteria Rare H (None) /hpf Microbiology - Last 24 Hours (Table) 04/13/19 19:33 Urine Culture - Preliminary Urine,Voided Assessment and Plan Plan: -Tibial plateau fracture: Patient will have a knee immobilizer Patient will need placement to subacute rehabilitation patient has generalized weakness and left a mechanical fall. recent --urinary tract infection no evidence of urinary tract infection at this time clinically. Will not require any antibiotics -Leukocytosis: Secondary to tibial plateau fracture and reactive in nature -Hypertension -Past esophageal reflux disease -hyperlipidemia -Depression -Peripheral neuropathy chronic low back pain. 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
[2019-04-14] MEDS: MIRTAZAPINE 15 MG TAB PO SCH (21:40)
[2019-04-14] MEDS: LISINOPRIL 5 MG TAB PO SCH (21:40)
[2019-04-15] MEDS: MELATONIN 3 MG TABLET PO SCH ×2 (00:07→23:31)
[2019-04-15] MEDS: LEVOTHYROXINE 125 MCG TAB PO SCH (05:39)
[2019-04-15 08:17] LABS: HCT 39.7 % (34.0-46.0); HGB 12.5 gm/dL (11.4-16.0); MCH 29.2 pg (25.0-35.0); MCHC 31.6 g/dL (31.0-37.0); MCV 92.5 fL (80.0-100.0); Mean Platelet Volume 7.2; Platelet Count 519 k/uL (150-450); RBC 4.29 m/uL (3.80-5.40); RDW 13.5 % (11.5-15.5); WBC 9.4 k/uL (3.8-10.6)
[2019-04-15 08:26] LABS: ALT 13 U/L (9-52); AST 17 U/L (14-36); Albumin 3.9 g/dL (3.5-5.0); Alkaline Phosphatase 89 U/L (38-126); Anion Gap 10 mmol/L; Blood Urea Nitrogen 9 mg/dL (7-17); Calcium 9.9 mg/dL (8.4-10.2); Carbon Dioxide 26 mmol/L (22-30); Chloride 107 mmol/L (98-107); Glucose 112 mg/dL (74-99); Potassium 4.3 mmol/L (3.5-5.1); Sodium 143 mmol/L (137-145); Total Bilirubin 0.3 mg/dL (0.2-1.3); Total Protein 7.2 g/dL (6.3-8.2)
[2019-04-15] MEDS: PANTOPRAZOLE 40 MG TABLET PO SCH (08:55)
[2019-04-15] MEDS: CHOLECALCIFEROL 1,000 UNIT TAB PO SCH (08:56)
[2019-04-15] MEDS: LISINOPRIL 10 MG TAB PO SCH (08:56)
[2019-04-15] MEDS: GABAPENTIN 400 MG CAP PO SCH ×2 (08:56→20:07)
[2019-04-15] MEDS: PRAVASTATIN SODIUM 20 MG TAB PO SCH (08:56)
[2019-04-15] MEDS: DULoxetine HCL 30 MG CAPSULE.DR PO SCH ×2 (08:57→20:07)
[2019-04-15] MEDS: HEPARIN SODIUM,PORCINE 5,000 UNIT/ML 1 ML VIAL SQ SCH ×2 (08:58→20:07)
--- NOTE | 2019-04-15 10:18 | P.PN ---
<Maxime Ge - Last Filed: 04/15/19 10:13> Progress Note - Text Progress Note Date: 04/15/19 Patient is a very pleasant 88-year-old female who is seen and examined the bedside for follow-up evaluation for her left knee. She states she sustained a fall couple days ago suffering a injury to her knee at that time. She also fell on her right wrist causing significant bruising. She presented to an urgent care for further treatment and evaluation. She was diagnosed with a tibial plateau fracture at that time. She was not found to have a fracture at her wrist. She states she is having difficulty with mobility so she was brought to the emergency department for further evaluation. CT imaging confirmed a tibial plateau fracture on the left. Patient states she was recently placed on bed rest until further evaluation. Previously she states she was ambulating to the restroom without significant difficulty. She does continue to have some left knee pain. Since being seen exam yesterday and knee immobilizer has been prescribed and fitted appropriately. Patient states she has not been out of bed to ambulate to the restroom. She is sitting at bedside chair without difficulty. Her right wrist pain has improved but she continues to have significant bruising at the right wrist. She has no other complaints. Patient states again today she would like to be discharged home at the time of discharge. Nursing states family does not feel she is able to adequately care for herself at home and the family continues to discuss the possibility of discharged to a rehabilitation facility. Patient was also previously diagnosed with a urinary tract infection started on an antibiotic. Medicine states patient does not have any dysuria symptoms, increased urinary frequency, or suprapubic pain and are not currently planning for antibiotic treatment for urinary tract infection during her admission. Patient states at the bedside she is not having any difficulty with urination. Patient has a past medical history which includes atrial fibrillation, CVA/TIA, dementia, hypertension. Physical Exam: Patient is awake, alert, and oriented 3 Vital signs stable Good chest excursion with deep inspiration and expiration Abdomen soft nontender No signs or symptoms of DVT; no calf pain Immobilizer currently tacked over the left knee No significant pain with palpation today of the left medial tibial plateau No pain with palpation over the left femur or distal left tibia Patient is able to perform dorsiflexion, plantarflexion, and extensor hallucis longus on the left without significant difficulty Neurovascularly intact left lower extremity Adequate range of motion of the right wrist, elbow, and fingers of the right hand without significant difficulty Evidence of significant bruising over the right hand, right wrist, and right forearm extending to the palmar side of the wrist Pertinent studies: CT of the left knee taken on 04/13/2019: Nondisplaced intra-articular fracture of the left medial tibia proximally; no evidence of fracture dislocation; small suprapatellar joint effusion; underlying osteoarthritic changes present Assessment: Left nondisplaced medial tibial plateau fracture Left knee pain Mild left medial knee swelling over the tibial plateau Status post fall Significant bruising of the right wrist status post fall without apparent fracture History of atrial fibrillation, CVA/TIA, dementia, hypertension Plan: 1. Patient has been discussed in detail with Dr. Khan. After reviewing of imaging, physical examination the patient, and further discussion with the patient, we will plan to continue conservative treatment as previously set forth yesterday in regards to her left nondisplaced medial tibial plateau fracture. Since being seen exam yesterday, knee immobilizer has been ordered and fitted appropriately for the patient. We discussed with her knee immobilizer intact she may ambulate and weight-bear as tolerated on her left lower extremity with the assistance of physical therapy or the nursing staff. A prescription for a walker has been written, signed, and provided to case management to nursery helper in ambulation. Now that the knee immobilizer has been delivered and fitted appropriately, patient is clear for discharge from orthopedic spine standpoint. We discussed she should keep this brace intact during mobility and increased activities. She does not have to sleep or bath with this brace intact. Patient will plan to follow-up with Dr. Khan in the outpatient setting in approximately 1 week at [facility]. We are not currently planning for treatment or further evaluation in regards to her right wrist. Patient has been discussed in detail with Dr. Khan and he agrees with this plan. 2. Patient will continue be seeing examined by medicine for her other medical diagnoses <Cricket Khan - Last Filed: 04/15/19 16:20> Progress Note - Text Reviewed and agree with above (amendments/corrections noted below). The patient was subsequently seen and examined by me as well. She denies any pain at rest. She has been able to transfer without difficulty. The immobilizer is in place. Mild, appropriate edema and tenderness around the medial knee. Continue with plan for nonsurgical treatment. The patient is to continue with touchdown weightbearing status until she has a formal evaluation by physical therapy. She may progress to 25% weightbearing on the left lower extremity if pain level stays mild. Otherwise, continue with touchdown only. She may remove the knee immobilizer at rest and perform range of motion as tolerated. Cricket Khan D.O. [facility]
--- NOTE | 2019-04-15 13:29 | P.PN ---
Subjective 88-year-old pleasant female was admitted for left tibial plateau fracture after mechanical fall while patient will have any immobilizer will need to be discharged to subacute rehabilitation. Patient's pain is well controlled. 04/15/2019 Patient has bilateral crackles posteriorly may be atelectasis but I'll obtain a chest x-ray make sure patient doesn't have any pulmonary edema patient pain is well controlled at this time. Constitutional: Denied any fatigue denied any fever. Cardio vascular: denied any chest pain, palpitations Gastrointestinal denied any nausea vomiting Pulmonary: Denied any shortness of breath cough Neurologic denied any new focal deficits All inpatient medications were reviewed and appropriate changes in these medicat ions as dictated in the interval history and assessment and plan. Objective - Vital Signs Vital signs: Vital Signs Temp 98.5 F 04/15/19 07:00 Pulse 93 04/15/19 07:50 Resp 16 04/15/19 07:00 BP 121/68 04/15/19 07:00 Pulse Ox 93 L 04/15/19 07:00 Intake & Output 04/14/19 04/15/19 04/15/19 18:59 06:59 18:59 Intake Total 420 250 Output Total 1 Balance 420 249 Intake: Oral 420 250 Output: Urine/Stool Mix 1 Other: Voiding Method Bedside Commode Bedside Commode # Voids 8 2 2 # Bowel Movements 1 2 - Exam PHYSICAL EXAMINATION: GENERAL: The patient is alert and oriented x3, not in any acute distress. Well developed, well nourished. HEENT: Pupils are round and equally reacting to light. EOMI. No scleral icterus. No conjunctival pallor. Normocephalic, atraumatic. No pharyngeal erythema. No thyromegaly. CARDIOVASCULAR: S1 and S2 present. No murmurs, rubs, or gallops. PULMONARY: crackles bilaterally most predominant in the posterior lung ovalle ABDOMEN: Soft, nontender, nondistended, normoactive bowel sounds. No palpable organomegaly. MUSCULOSKELETAL: Left leg swollen EXTREMITIES: No cyanosis, clubbing, or pedal edema. NEUROLOGICAL: Gross neurological examination did not reveal any focal deficits. SKIN: No rashes. - Labs CBC & Chem 7: 04/15/19 07:37 04/15/19 07:37 Labs: Abnormal Lab Results - Last 24 Hours (Table) 04/15/19 04/15/19 Range/Units 07:37 07:37 Plt Count 519 H (150-450) k/uL Glucose 112 H (74-99) mg/dL Microbiology - Last 24 Hours (Table) 04/13/19 19:33 Urine Culture - Preliminary Urine,Voided Gram Neg Bacilli Assessment and Plan Plan: -Tibial plateau fracture: Patient will have a knee immobilizer Patient will need placement to subacute rehabilitation patient has generalized weakness and left a mechanical fall. recent --urinary tract infection no evidence of urinary tract infection at this time clinically. Will not require any antibiotics -Leukocytosis: Secondary to tibial plateau fracture and reactive in nature -Hypertension -Past esophageal reflux disease -hyperlipidemia -Depression -Peripheral neuropathy chronic low back pain. 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
[2019-04-15] MEDS: ACETAMINOPHEN TAB 325 MG TAB PO PRN (14:11)
[2019-04-15] MEDS: FOLIC ACID 1 MG TAB PO SCH (14:12)
--- NOTE | 2019-04-15 14:24 | XR ---
EXAMINATION TYPE: XR chest 1V DATE OF EXAM: 04/15/2019 COMPARISON: Prior chest x-ray 01/06/2019 HISTORY: Abnormal physical exam, cough TECHNIQUE: Single frontal view of the chest is obtained. FINDINGS: Subsegmental atelectatic changes or scarring at the left lung base. Questionable nodular de nsity right lung base. Patient is rotated. Cardiac mediastinal silhouette, pulmonary vascular and hil a are stable. No pneumothorax or pleural effusion. Aorta is dense. IMPRESSION: No acute process. Probable basilar atelectasis or scarring. Stable exam.
[2019-04-15] MEDS: KETOROLAC 30 MG/ML 1 ML VIAL IVP PRN (14:32)
[2019-04-15] MEDS: LISINOPRIL 5 MG TAB PO SCH (20:08)
[2019-04-15] MEDS: MIRTAZAPINE 15 MG TAB PO SCH (20:08)
[2019-04-16 02:34] VITALS: RESP 20
[2019-04-16] MEDS: CHOLECALCIFEROL 1,000 UNIT TAB PO SCH (08:00)
[2019-04-16] MEDS: DULoxetine HCL 30 MG CAPSULE.DR PO SCH (08:00)
[2019-04-16] MEDS: LISINOPRIL 10 MG TAB PO SCH (08:00)
[2019-04-16] MEDS: GABAPENTIN 400 MG CAP PO SCH (08:00)
[2019-04-16] MEDS: PANTOPRAZOLE 40 MG TABLET PO SCH (08:00)
[2019-04-16] MEDS: PRAVASTATIN SODIUM 20 MG TAB PO SCH (08:00)
[2019-04-16] MEDS: LEVOTHYROXINE 125 MCG TAB PO SCH (08:00)
[2019-04-16] MEDS: HEPARIN SODIUM,PORCINE 5,000 UNIT/ML 1 ML VIAL SQ SCH (08:01)
[2019-04-16] MEDS: FOLIC ACID 1 MG TAB PO SCH (10:04)
[2019-04-16] MEDS: KETOROLAC 30 MG/ML 1 ML VIAL IVP PRN (10:05)
--- NOTE | 2019-04-16 11:37 | P.DS ---
Providers Date of admission: 04/13/19 15:20 Attending physician: Nya Hawkins Consults: 04/13/19 15:21 Consult Physician Urgent Consulting Provider: Cricket Khan Consult Reason/Comments: Tibial plateau fracture Do you want consulting provider notified?: Yes Primary care physician: [facility] Course: 88-year-old pleasant female was admitted for left tibial plateau fracture after mechanical fall while patient will have any immobilizer will need to be discharged to subacute rehabilitation. Patient's pain is well controlled. 04/15/2019 Patient has bilateral crackles posteriorly may be atelectasis but I'll obtain a chest x-ray make sure patient doesn't have any pulmonary edema patient pain is well controlled at this time. 04/16/2019 Patient is clinically doing well no overnight events patient will be discharged to subacute rehabilitation today. Patient is being treated for urinary tract infection has E. coli which is pansensitive patient will continue 3 more days of antibiotics PHYSICAL EXAMINATION: GENERAL: The patient is alert and oriented x3, not in any acute distress. Well developed, well nourished. HEENT: Pupils are round and equally reacting to light. EOMI. No scleral icterus. No conjunctival pallor. Normocephalic, atraumatic. No pharyngeal erythema. No thyromegaly. CARDIOVASCULAR: S1 and S2 present. No murmurs, rubs, or gallops. PULMONARY: crackles bilaterally most predominant in the posterior lung ovalle ABDOMEN: Soft, nontender, nondistended, normoactive bowel sounds. No palpable organomegaly. MUSCULOSKELETAL: Left leg swollen EXTREMITIES: No cyanosis, clubbing, or pedal edema. NEUROLOGICAL: Gross neurological examination did not reveal any focal deficits. SKIN: No rashes. Assessment and Plan Plan: -Tibial plateau fracture: Patient will have a knee immobilizer Patient will need placement to subacute rehabilitation -urinary tract infection with E. coli -Leukocytosis: Resolved now secondary to tibial plateau fracture and UTI -Hypertension -Gastro-esophageal reflux disease -hyperlipidemia -Depression -Peripheral neuropathy chronic low back pain. 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 -Hypothyroidism continue with levothyroxine atelectasis incentive spirometry Patient Condition at Discharge: Fair Plan - Discharge Summary New Discharge Prescriptions: New Cefuroxime Axetil [Ceftin] 500 mg PO BID 3 Days #6 tab Naproxen [Naprosyn] 250 mg PO QID PRN #30 tab PRN Reason: Pain Continue DULoxetine HCL [Cymbalta] 30 mg PO BID Vit C/E/Zn/Coppr/Lutein/Zeaxan [Preservision Areds 2 Softgel] 1 cap PO DAILY Cholecalciferol [Vitamin D3 (25 Mcg = 1000 Iu)] 5,000 unit PO DAILY Ascorbic Acid [Vitamin C] 500 mg PO DAILY Pravastatin Sodium [Pravachol] 10 mg PO DAILY Mirtazapine [Remeron] 15 mg PO HS Levothyroxine Sodium [Synthroid] 125 mcg PO DAILY@0630 tab Albuterol Inhaler [Ventolin Hfa Inhaler] 2 puff INHALATION RT-Q4H PRN PRN Reason: Shortness Of Breath Benzonatate [Tessalon Perles] 100 mg PO TID PRN PRN Reason: Cough Omeprazole 20 mg PO DAILY L.acidoph,Paracasei, B.lactis [Probiotic] 1 cap PO DAILY Folic Acid 0.8 mg PO DAILY Gabapentin [Neurontin] 400 mg PO BID #6 cap Changed Lisinopril [Zestril] 20 mg PO DAILY #0 Discontinued Lisinopril [Zestril] 5 mg PO HS Sulfamethox-Tmp 800-160Mg [Bactrim DS 800-160 mg] 1 tab PO Q12H oxyCODONE-APAP 10-325MG [Percocet 10-325 mg] 1 tab PO BID Discharge Medication List DULoxetine HCL [Cymbalta] 30 mg PO BID 06/27/16 [History] Ascorbic Acid [Vitamin C] 500 mg PO DAILY 11/25/18 [History] Cholecalciferol [Vitamin D3 (25 Mcg = 1000 Iu)] 5,000 unit PO DAILY 11/25/18 [History] Mirtazapine [Remeron] 15 mg PO HS 11/25/18 [History] Pravastatin Sodium [Pravachol] 10 mg PO DAILY 11/25/18 [History] Vit C/E/Zn/Coppr/Lutein/Zeaxan [Preservision Areds 2 Softgel] 1 cap PO DAILY 11/25/18 [History] Levothyroxine Sodium [Synthroid] 125 mcg PO DAILY@0630 tab 01/09/19 [Rx] Albuterol Inhaler [Ventolin Hfa Inhaler] 2 puff INHALATION RT-Q4H PRN 04/13/19 [History] Benzonatate [Tessalon Perles] 100 mg PO TID PRN 04/13/19 [History] Folic Acid 0.8 mg PO DAILY 04/13/19 [History] L.acidoph,Paracasei, B.lactis [Probiotic] 1 cap PO DAILY 04/13/19 [History] Omeprazole 20 mg PO DAILY 04/13/19 [History] Cefuroxime Axetil [Ceftin] 500 mg PO BID 3 Days #6 tab 04/16/19 [Rx] Gabapentin [Neurontin] 400 mg PO BID #6 cap 04/16/19 [Rx] Lisinopril [Zestril] 20 mg PO DAILY #0 04/16/19 [Rx] Naproxen [Naprosyn] 250 mg PO QID PRN #30 tab 04/16/19 [Rx] Follow up Appointment(s)/Referral(s): Jacob Shepard DO [Primary Care Provider] - 1-2 days Andrew Briceño [NON-STAFF] - As Needed Cricket Khan DO [Medical Doctor] - 1 Week (Patient may follow-up with Dr. Kahn at [facility] in 1 week following discharge. ) Nikkie Kelly [NON-STAFF] - 1-2 Days (to deliver to room today [phone]) Activity/Diet/Wound Care/Special Instructions: 1. Patient may weight-bear as tolerated with left knee immobilizer intact with the assistance of therapy or nursing 2. Patient may use a walker to aid in ambulation as needed 3. Patient should keep left knee immobilizer intact at all times during increased activities and ambulation 4. Left knee immobilizer does not have to be kept intact while at rest or bathing Discharge Disposition: TRANSFER TO SNF/ECF
[2019-04-16 13:53] VITALS: BP 123/70; PULSE 86; TEMP 97.9
[2019-04-16] MEDS: ACETAMINOPHEN TAB 325 MG TAB PO PRN (16:18)
== END 2019-04-16 19:19 | DRG 563 ==
LOC: EC 12:55 → 4SSUR 15:20
PROVIDERS: ADMIT Hospitalist; ATTEND Hospitalist
DX: S82.145A Nondisplaced bicondylar fracture of left tibia, initial encounter for closed fracture (principal); J98.11 Atelectasis; E03.9 Hypothyroidism, unspecified; E78.5 Hyperlipidemia, unspecified; F03.90 Unspecified dementia, unspecified severity, without behavioral disturbance, psychotic disturbance, mood disturbance, and anxiety; F32.9 Major depressive disorder, single episode, unspecified; G62.9 Polyneuropathy, unspecified; G89.29 Other chronic pain; I10 Essential (primary) hypertension; I48.91 Unspecified atrial fibrillation; K21.9 Gastro-esophageal reflux disease without esophagitis; S60.211A Contusion of right wrist, initial encounter; W01.0XXA Fall on same level from slipping, tripping and stumbling without subsequent striking against object, initial encounter; Z79.890 Hormone replacement therapy; Z79.899 Other long term (current) drug therapy; Z82.49 Family history of ischemic heart disease and other diseases of the circulatory system; Z86.73 Personal history of transient ischemic attack (TIA), and cerebral infarction without residual deficits; Z91.81 History of falling; Z88.8 Allergy status to other drugs, medicaments and biological substances
CPT/HCPCS: 36415; 71045; 80053; 81001; 85025; 85027; 85610; 85730; 87077; 87086; 87186; 99284

== ENCOUNTER 2019-09-19 17:39 | Emergency (ER) | payer MEDICARE, BC ==
[2019-09-19 17:46] VITALS: TEMP 98
--- NOTE | 2019-09-19 17:58 | ED ---
General Adult HPI - General Chief complaint: Extremity Injury, Upper Stated complaint: left wrist injury from fall Time Seen by Provider: 09/19/19 17:47 Source: patient, family Mode of arrival: ambulatory Limitations: no limitations - History of Present Illness Initial comments: Patient is an 89-year-old female presenting to the emergency room with a chief complaint of wrist pain. Patient reports she tripped, fell forward and attempted to catch herself with her left hand. Patient reports she felt pain at the left wrist. Patient also reported mild swelling and a hematoma in the region. Patient denies any abrasions or lacerations. Patient denies any head trauma loss of consciousness. Patient denies any dizziness or lightheadedness at the time of injury. Patient denies any numbness or tingling but she does report limited range of motion of the wrist with flexion and extension. Patient reports she took thousand milligrams of Tylenol prior to ED arrival. - Related Data Home Medications Medication Instructions Recorded Confirmed DULoxetine HCL [Cymbalta] 30 mg PO BID 06/27/16 09/19/19 Ascorbic Acid [Vitamin C] 500 mg PO DAILY 11/25/18 09/19/19 Cholecalciferol [Vitamin D3 (25 5,000 unit PO DAILY 11/25/18 09/19/19 Mcg = 1000 Iu)] Mirtazapine [Remeron] 15 mg PO HS 11/25/18 09/19/19 Pravastatin Sodium [Pravachol] 10 mg PO DAILY 11/25/18 09/19/19 Folic Acid 0.8 mg PO DAILY 04/13/19 09/19/19 Omeprazole 20 mg PO DAILY 04/13/19 09/19/19 Cranberry Fruit Extract [Cranberry] 500 mg PO DAILY 09/19/19 09/19/19 Gabapentin [Neurontin] 400 mg PO Q12H 09/19/19 09/19/19 Ipratropium [place] [Ipratropium 2 sprays EA NOSTRIL BID 09/19/19 09/19/19 [place] 0.03%] Levothyroxine Sodium [Synthroid] 125 mcg PO DAILY 09/19/19 09/19/19 Vit A/Vit C/Vit E/Zinc/Copper 1 cap PO DAILY 09/19/19 09/19/19 [ICAPS SOFTGEL] Allergies Allergy/AdvReac Type Severity Reaction Status Date / Time amiodarone HCl Allergy Unknown Verified 09/19/19 18:23 [From Cordarone] epinephrine Allergy Unknown Verified 09/19/19 18:23 metoclopramide HCl Allergy Unknown Verified 09/19/19 18:23 [From Reglan] nifedipine [From Procardia] Allergy Unknown Verified 09/19/19 18:23 nitrofurantoin Allergy Unknown Verified 09/19/19 18:23 macrocrystalline [From Macrodantin] propafenone HCl Allergy Unknown Verified 09/19/19 18:23 [From Rythmol] Quinolones Allergy Unknown Verified 09/19/19 18:23 novacaine Allergy Unknown Uncoded 09/19/19 17:46 Review of Systems ROS Statement: Those systems with pertinent positive or pertinent negative responses have been documented in the HPI. ROS Other: All systems not noted in ROS Statement are negative. Past Medical History Past Medical History: Atrial Fibrillation, CVA/TIA, Dementia, Hypertension, Osteoarthritis (OA), Pneumonia, Thyroid Disorder Additional Past Medical History / Comment(s): hypothyroid, migraine cephalgia, irregular heart rate, TIA, neuropathy History of Any Multi-Drug Resistant Organisms: None Reported Past Surgical History: Appendectomy, Back Surgery, Section, Orthopedic Surgery, Tonsillectomy Additional Past Surgical History / Comment(s): Back surgery failed stenosis repair, pelvic area reconstruction surgery 3x post vaginal delivery of first child, hammer toe repair with pin and removal. Past Anesthesia/Blood Transfusion Reactions: No Reported Reaction Past Psychological History: Depression Smoking Status: Never smoker Past Alcohol Use History: None Reported Past Drug Use History: None Reported - Past Family History Mother Family Medical History: Hypertension Father Family Medical History: CVA/TIA General Exam Limitations: no limitations General appearance: alert, in no apparent distress Head exam: Present: atraumatic, normocephalic, normal inspection Eye exam: Present: normal appearance Pupils: Present: normal accommodation ENT exam: Present: normal exam, normal oropharynx, mucous membranes moist, TM's normal bilaterally, normal external ear exam Neck exam: Present: normal inspection, full ROM Respiratory exam: Present: normal lung sounds bilaterally Cardiovascular Exam: Present: regular rate, normal rhythm, normal heart sounds Extremities exam: Present: tenderness (Tenderness at the medial and lateral aspect of left wrist.), normal capillary refill, joint swelling (Left wrist), other (+2 ulnar and radial pulses bilaterally.). Absent: normal inspection (Mild swelling with a hematoma on the left wrist.), full ROM (Limited range of motion with flexion and extension.) Back exam: Present: normal inspection, full ROM Neurological exam: Present: alert, oriented X3 Psychiatric exam: Present: normal affect, normal mood Skin exam: Present: warm, intact, normal color Course Vital Signs 09/19/19 09/19/19 17:43 19:43 Temperature 98 F Pulse Rate 84 88 Respiratory 20 16 Rate Blood Pressure 152/80 145/83 O2 Sat by Pulse 99 95 Oximetry Procedures - Nerve Block Consent Obtained: verbal consent Local Anesthetic Used: Lidocaine 1% Amount of anesthesia used: 5 Side: left Nerve Blocks: radial, hematoma block Procedure Successful: Yes Complications: none Patient Tolerated Procedure: well, no complications - Orthopedic Splinting/Casting Injury #1 Side: left Upper Extremity Injury Location: wrist Upper Extremity Immobilizer: volar splint, [place] wrap, synthetic pre-padded splint Medical Decision Making - Medical Decision Making patient is an 89-year-old female presenting to the emergency department with a chief complaint of left wrist pain. Patient injured her left wrist but she never completely fall to the ground. On initial evaluation patient denied any analgesia. Patient had no trauma to the head, loss of consciousness, dizziness, lightheadedness. Patient is not on blood thinners. Left wrist is shown to have a distal radial and all are fracture on x-rays. Patient was given a hematoma block at the radial fracture site. Patient reports improvement of symptoms and no more pain in the region. Patient was also given oxycodone on reevaluation. volar Splint was applied. Patient advised to follow-up with orthopedics for further management. The son will help take care of the patient. Strict return parameters were thoroughly discussed the patient was understanding and agreeable. Case discussed physician. Disposition Clinical Impression: Ulna distal fracture, Distal radial fracture Disposition: HOME SELF-CARE Condition: Stable Instructions (If sedation given, give patient instructions): Wrist Fracture in Adults (ED) Additional Instructions: Follow with orthopedics. Please return to emergency department if symptoms worsen. Alternate between Tylenol and ibuprofen for pain control. Is patient prescribed a controlled substance at d/c from ED?: No Referrals: Jacob Shepard DO [Primary Care Provider] - 1-2 days Cricket Khan DO [Medical Doctor] - 1-2 days Time of Disposition: 19:45
--- NOTE | 2019-09-19 18:34 | XR ---
EXAMINATION TYPE: XR wrist complete LT DATE OF EXAM: 09/19/2019 COMPARISON: NONE HISTORY: Fall. Pain. TECHNIQUE: 4 views FINDINGS: There is acute impacted comminuted transverse fracture distal radial metaphysis. Fracture l ine extends to the radiocarpal joint. There is no dislocation. There is noted significant displacemen t. There is nondisplaced fracture ulnar styloid process. There is soft tissue swelling around the car pus. There is moderately severe osteoarthritis at the first carpometacarpal joint. IMPRESSION: Acute fractures distal radius and ulna as above.
[2019-09-19] MEDS ORDERED: LIDOCAINE 1% INJ 10MG/ML (20 ML MDV) SQ ONE (19:02)
[2019-09-19] MEDS ORDERED: oxyCODONE ER 15 MG TAB.ER.12H PO STA (19:07)
[2019-09-19 19:43] VITALS: BP 145/83; PULSE 88; RESP 16
== END 2019-09-19 20:24 | disposition home or self-care (01) ==
LOC: EC 17:39
DX: S52.502A Unspecified fracture of the lower end of left radius, initial encounter for closed fracture (principal); S52.602A Unspecified fracture of lower end of left ulna, initial encounter for closed fracture; F03.90 Unspecified dementia, unspecified severity, without behavioral disturbance, psychotic disturbance, mood disturbance, and anxiety; I10 Essential (primary) hypertension; E03.9 Hypothyroidism, unspecified; G62.9 Polyneuropathy, unspecified; F32.9 Major depressive disorder, single episode, unspecified; Z88.1 Allergy status to other antibiotic agents; Z88.4 Allergy status to anesthetic agent; Z88.8 Allergy status to other drugs, medicaments and biological substances; Z79.890 Hormone replacement therapy; Z79.899 Other long term (current) drug therapy; Z87.39 Personal history of other diseases of the musculoskeletal system and connective tissue; Z86.69 Personal history of other diseases of the nervous system and sense organs; Z87.01 Personal history of pneumonia (recurrent); W01.0XXA Fall on same level from slipping, tripping and stumbling without subsequent striking against object, initial encounter; Y92.009 Unspecified place in unspecified non-institutional (private) residence as the place of occurrence of the external cause
CPT/HCPCS: 73110; 99283; 29125; 64450; J2001

== ENCOUNTER → 2019-09-20 | Outpatient (CLI) | payer MEDICARE, BC | END | disposition home or self-care (01) | LOC: LABWHC1 13:52 | PROVIDERS: ATTEND Orthopaedic Surgery | DX: M25.532 Pain in left wrist (principal); E55.9 Vitamin D deficiency, unspecified | CPT/HCPCS: 36415; 82306 ==

== ENCOUNTER 2019-09-21 16:34 | Inpatient (IN) | payer MEDICARE, BC ==
[2019-09-21] MEDS ORDERED: ONDANSETRON 4 MG/2 ML VIAL IVP STA (17:13)
[2019-09-21] MEDS ORDERED: SODIUM CHLORIDE 0.9% 1,000 ML IV STA ×2 (17:13)
[2019-09-21] MEDS ORDERED: GLYCERIN ADULT SUPPOSITORY 1 EACH RECTAL STA (17:15)
[2019-09-21] MEDS ORDERED: SENNOSIDES-DOCUSATE SODIUM 1 EACH TAB PO STA (17:15)
--- NOTE | 2019-09-21 17:43 | ED ---
Weakness HPI - General Chief complaint: Weakness Stated complaint: UTI Time Seen by Provider: 09/21/19 16:42 Source: patient, family, RN notes reviewed, old records reviewed Mode of arrival: EMS Limitations: altered mental status - History of Present Illness Initial comments: This is an 89-year-old female patient does say for evaluation of weakness recent diagnosis of UTI also recent fall with left wrist fracture patient's left wrist fractures left from significant compromise at home which is unable to take care of herself under the ER to get around with significant completion of her normal ADLs. She took her antibiotics was still feeling very weak she also had a more recent falls since then. Patient has decreased appetite does admit to increased thirst. Family states she's not eating and drinking appropriately. Patient also states she has not had a bowel movement 5 days MD Complaint: generalized weakness -: days(s) Location: generalized, L hand Severity: moderate Severity scale (1-10): 4 Quality: aching Consistency: intermittent Improves with: none Worsens with: none Context: history of similar Associated Symptoms: denies other symptoms - Related Data Home Medications Medication Instructions Recorded Confirmed DULoxetine HCL [Cymbalta] 30 mg PO BID 06/27/16 09/21/19 Ascorbic Acid [Vitamin C] 500 mg PO DAILY 11/25/18 09/21/19 Cholecalciferol [Vitamin D3 (25 5,000 unit PO DAILY 11/25/18 09/21/19 Mcg = 1000 Iu)] Mirtazapine [Remeron] 15 mg PO HS 11/25/18 09/21/19 Pravastatin Sodium [Pravachol] 10 mg PO DAILY 11/25/18 09/21/19 Folic Acid 0.8 mg PO DAILY 04/13/19 09/21/19 Omeprazole 20 mg PO DAILY 04/13/19 09/21/19 Cranberry Fruit Extract [Cranberry] 500 mg PO DAILY 09/19/19 09/21/19 Gabapentin [Neurontin] 400 mg PO Q12H 09/19/19 09/21/19 Ipratropium [place] [Ipratropium 2 sprays EA NOSTRIL BID 09/19/19 09/21/19 [place] 0.03%] Levothyroxine Sodium [Synthroid] 125 mcg PO DAILY 09/19/19 09/21/19 Vit A/Vit C/Vit E/Zinc/Copper 1 cap PO DAILY 09/19/19 09/21/19 [ICAPS SOFTGEL] Ciprofloxacin HCl [Cipro] 500 mg PO BID 09/21/19 09/21/19 Ferrous Sulfate [Feosol] 325 mg PO DAILY 09/21/19 09/21/19 [facility] 1 cap PO DAILY 09/21/19 09/21/19 oxyCODONE HCL/ACETAMINOPHEN 1 tab PO Q12H PRN 09/21/19 09/21/19 [Percocet 10-325 mg] Allergies Allergy/AdvReac Type Severity Reaction Status Date / Time amiodarone HCl Allergy Unknown Verified 09/21/19 18:48 [From Cordarone] epinephrine Allergy Unknown Verified 09/21/19 18:48 metoclopramide HCl Allergy Unknown Verified 09/21/19 18:48 [From Reglan] nifedipine [From Procardia] Allergy Unknown Verified 09/21/19 18:48 nitrofurantoin Allergy Unknown Verified 09/21/19 18:48 macrocrystalline [From Macrodantin] propafenone HCl Allergy Unknown Verified 09/21/19 18:48 [From Rythmol] Quinolones Allergy Unknown Verified 09/21/19 18:48 novacaine Allergy Unknown Uncoded 09/21/19 16:49 Review of Systems ROS Statement: Those systems with pertinent positive or pertinent negative responses have been documented in the HPI. ROS Other: All systems not noted in ROS Statement are negative. Past Medical History Past Medical History: Atrial Fibrillation, CVA/TIA, Dementia, Hypertension, Osteoarthritis (OA), Pneumonia, Thyroid Disorder Additional Past Medical History / Comment(s): hypothyroid, migraine cephalgia, irregular heart rate, TIA, neuropathy History of Any Multi-Drug Resistant Organisms: None Reported Past Surgical History: Appendectomy, Back Surgery, Section, Orthopedic Surgery, Tonsillectomy Additional Past Surgical History / Comment(s): Back surgery failed stenosis repair, pelvic area reconstruction surgery 3x post vaginal delivery of first child, hammer toe repair with pin and removal. Past Anesthesia/Blood Transfusion Reactions: No Reported Reaction Past Psychological History: Depression Smoking Status: Never smoker Past Alcohol Use History: None Reported Past Drug Use History: None Reported - Past Family History Mother Family Medical History: Hypertension Father Family Medical History: CVA/TIA General Exam Limitations: altered mental status General appearance: alert, in no apparent distress Head exam: Present: atraumatic, normocephalic, normal inspection Eye exam: Present: normal appearance, PERRL, EOMI. Absent: scleral icterus, conjunctival injection, periorbital swelling ENT exam: Present: normal exam, mucous membranes moist Neck exam: Present: normal inspection. Absent: tenderness, meningismus, lymphadenopathy Respiratory exam: Present: normal lung sounds bilaterally. Absent: respiratory distress, wheezes, rales, rhonchi, stridor Cardiovascular Exam: Present: regular rate, normal rhythm, normal heart sounds. Absent: systolic murmur, diastolic murmur, rubs, gallop, clicks GI/Abdominal exam: Present: soft, normal bowel sounds. Absent: distended, tenderness, guarding, rebound, rigid Extremities exam: Present: normal inspection, full ROM, normal capillary refill, other (Left wrist is casted good range of motion of fingers of significant pain). Absent: tenderness, pedal edema, joint swelling, calf tenderness Back exam: Present: normal inspection Neurological exam: Present: alert, oriented X3, CN II-XII intact Psychiatric exam: Present: normal affect, normal mood Skin exam: Present: warm, dry, intact, normal color. Absent: rash Course Vital Signs 09/21/19 09/21/19 16:41 18:00 Temperature 98.5 F Pulse Rate 95 88 Respiratory 18 20 Rate Blood Pressure 143/67 155/68 O2 Sat by Pulse 94 L 94 L Oximetry - Reevaluation(s) Reevaluation #1: 09/21/19 19:13 Medical record is reviewed Reevaluation #2: 09/21/19 19:13 Spoke with family at length regarding keeping patient hospital, they are agreeable - Consultations Consultation #1: Spoke with Dr. Sood she was okay for admission EKG Findings - EKG Comments: EKG Findings:: EKG shows sinus rhythm rate of 84, OK 196, QRS 84, QTC 406 Medical Decision Making - Medical Decision Making 89 female the ER for evaluation weakness x-rays are negative currently placed on bowel regimen admit for pain control left wrist pain and chronic pain as well as UTI which is worsening mild elevated troponin with non-ST elevated [place] - Lab Data Result diagrams: 09/21/19 17:50 09/21/19 17:50 Lab Results 09/21/19 09/21/19 09/21/19 Range/Units 17:50 17:50 17:50 WBC 10.0 (3.8-10.6) k/uL RBC 3.87 (3.80-5.40) m/uL Hgb 11.4 (11.4-16.0) gm/dL Hct 36.2 (34.0-46.0) % MCV 93.6 (80.0-100.0) fL MCH 29.4 (25.0-35.0) pg MCHC 31.4 (31.0-37.0) g/dL RDW 12.8 (11.5-15.5) % Plt Count 405 (150-450) k/uL Neutrophils % 77 % Lymphocytes % 9 % Monocytes % 7 % Eosinophils % 2 % Basophils % 3 % Neutrophils # 7.7 (1.3-7.7) k/uL Lymphocytes # 0.9 L (1.0-4.8) k/uL Monocytes # 0.7 (0-1.0) k/uL Eosinophils # 0.2 (0-0.7) k/uL Basophils # 0.3 H (0-0.2) k/uL PT (9.0-12.0) sec INR (<1.2) APTT (22.0-30.0) sec Sodium 136 L (137-145) mmol/L Potassium 4.5 (3.5-5.1) mmol/L Chloride 100 (98-107) mmol/L Carbon Dioxide 28 (22-30) mmol/L Anion Gap 8 mmol/L BUN 22 H (7-17) mg/dL Creatinine 0.79 (0.52-1.04) mg/dL Est GFR (CKD-EPI)AfAm 77 (>60 ml/min/1.73 sqM) Est GFR (CKD-EPI)NonAf 67 (>60 ml/min/1.73 sqM) Glucose 138 H (74-99) mg/dL Calcium 9.3 (8.4-10.2) mg/dL Phosphorus 3.0 (2.5-4.5) mg/dL Magnesium 1.8 (1.6-2.3) mg/dL Total Bilirubin 0.3 (0.2-1.3) mg/dL AST 16 (14-36) U/L ALT 17 (9-52) U/L Alkaline Phosphatase 81 (38-126) U/L Creatine Kinase 39 (30-135) U/L CK-MB (CK-2) 1.3 (0.0-2.4) ng/mL Troponin I 0.089 H* (0.000-0.034) ng/mL NT-Pro-B Natriuret Pep pg/mL Total Protein 7.2 (6.3-8.2) g/dL Albumin 3.7 (3.5-5.0) g/dL Urine Color Urine Appearance (Clear) Urine pH (5.0-8.0) Ur Specific [place] (1.001-1.035) Urine Protein (Negative) Urine Glucose (UA) (Negative) Urine Ketones (Negative) Urine Blood (Negative) Urine Nitrite (Negative) Urine Bilirubin (Negative) Urine Urobilinogen (<2.0) mg/dL Ur Leukocyte Esterase (Negative) Urine RBC (0-5) /hpf Urine WBC (0-5) /hpf Urine WBC Clumps (None) /hpf Urine Bacteria (None) /hpf Urine Mucus (None) /hpf 09/21/19 09/21/19 09/21/19 Range/Units 17:50 17:50 18:00 WBC (3.8-10.6) k/uL RBC (3.80-5.40) m/uL Hgb (11.4-16.0) gm/dL Hct (34.0-46.0) % MCV (80.0-100.0) fL MCH (25.0-35.0) pg MCHC (31.0-37.0) g/dL RDW (11.5-15.5) % Plt Count (150-450) k/uL Neutrophils % % Lymphocytes % % Monocytes % % Eosinophils % % Basophils % % Neutrophils # (1.3-7.7) k/uL Lymphocytes # (1.0-4.8) k/uL Monocytes # (0-1.0) k/uL Eosinophils # (0-0.7) k/uL Basophils # (0-0.2) k/uL PT 9.9 (9.0-12.0) sec INR 0.9 (<1.2) APTT 25.9 (22.0-30.0) sec Sodium (137-145) mmol/L Potassium (3.5-5.1) mmol/L Chloride (98-107) mmol/L Carbon Dioxide (22-30) mmol/L Anion Gap mmol/L BUN (7-17) mg/dL Creatinine (0.52-1.04) mg/dL Est GFR (CKD-EPI)AfAm (>60 ml/min/1.73 sqM) Est GFR (CKD-EPI)NonAf (>60 ml/min/1.73 sqM) Glucose (74-99) mg/dL Calcium (8.4-10.2) mg/dL Phosphorus (2.5-4.5) mg/dL Magnesium (1.6-2.3) mg/dL Total Bilirubin (0.2-1.3) mg/dL AST (14-36) U/L ALT (9-52) U/L Alkaline Phosphatase (38-126) U/L Creatine Kinase (30-135) U/L CK-MB (CK-2) (0.0-2.4) ng/mL Troponin I (0.000-0.034) ng/mL NT-Pro-B Natriuret Pep 240 pg/mL Total Protein (6.3-8.2) g/dL Albumin (3.5-5.0) g/dL Urine Color Yellow Urine Appearance Cloudy H (Clear) Urine pH 5.5 (5.0-8.0) Ur Specific [place] 1.017 (1.001-1.035) Urine Protein 1+ H (Negative) Urine Glucose (UA) Negative (Negative) Urine Ketones Negative (Negative) Urine Blood Negative (Negative) Urine Nitrite Negative (Negative) Urine Bilirubin Negative (Negative) Urine Urobilinogen <2.0 (<2.0) mg/dL Ur Leukocyte Esterase Large H (Negative) Urine RBC 2 (0-5) /hpf Urine WBC >182 H (0-5) /hpf Urine WBC Clumps Many H (None) /hpf Urine Bacteria Rare H (None) /hpf Urine Mucus Rare H (None) /hpf - Radiology Data Radiology results: report reviewed (X-ray abdominal series and chest is), image reviewed Disposition Clinical Impression: Elevated troponin, Weakness, Failure of outpatient treatment, UTI (urinary tract infection), Dizziness Disposition: ADMITTED IP TO THIS [facility] Condition: Fair Is patient prescribed a controlled substance at d/c from ED?: No Referrals: Jacob Shepard DO [Primary Care Provider] - 1-2 days
[2019-09-21 18:02] LABS: Basophils # (A) 0.3 k/uL (0-0.2); Basophils % (A) 3 %; Eosinophils # (A) 0.2 k/uL (0-0.7); Eosinophils % (A) 2 %; HCT 36.2 % (34.0-46.0); HGB 11.4 gm/dL (11.4-16.0); Lymphocytes # (A) 0.9 k/uL (1.0-4.8); Lymphocytes % (A) 9 %; MCH 29.4 pg (25.0-35.0); MCHC 31.4 g/dL (31.0-37.0); MCV 93.6 fL (80.0-100.0); Mean Platelet Volume 6.3; Monocytes # (A) 0.7 k/uL (0-1.0); Monocytes % (A) 7 %; Neutrophils # (A) 7.7 k/uL (1.3-7.7); Neutrophils % (A) 77 %; Platelet Count 405 k/uL (150-450); RBC 3.87 m/uL (3.80-5.40); RDW 12.8 % (11.5-15.5)
[2019-09-21 18:12] LABS: Albumin 3.7 g/dL (3.5-5.0); Calcium 9.3 mg/dL (8.4-10.2); INR 0.9 (<1.2); Magnesium 1.8 mg/dL (1.6-2.3); Partial Thromboplastin Time 25.9 sec (22.0-30.0); Potassium 4.5 mmol/L (3.5-5.1); Prothrombin Time 9.9 sec (9.0-12.0); Total Bilirubin 0.3 mg/dL (0.2-1.3); Total Protein 7.2 g/dL (6.3-8.2)
[2019-09-21 18:20] LABS: Appearance,Urine Cloudy (Clear); Bacteria,Urine Rare /hpf; Bilirubin,Urine Negative (Negative); Blood,Urine Negative (Negative); Color,Urine Yellow; Glucose,Urine (UA) Negative (Negative); Ketones,Urine Negative (Negative); Leukocyte Esterase,Urine Large (Negative); Mucus,Urine Rare /hpf; Nitrite,Urine Negative (Negative); PH, Urine 5.5 (5.0-8.0); Protein,Urine 1+ (Negative); RBC,Urine 2 /hpf (0-5); Specific Gravity,Urine 1.017 (1.001-1.035); Urobilinogen,Urine <2.0 mg/dL (<2.0)
[2019-09-21 18:42] LABS: Creatine Kinase MB 1.3 ng/mL (0.0-2.4)
[2019-09-21 18:46] LABS: Troponin I 0.089 ng/mL (0.000-0.034)
--- NOTE | 2019-09-21 18:59 | XR ---
EXAMINATION TYPE: XR abdomen acute w cxr DATE OF EXAM: 09/21/2019 COMPARISON: NONE HISTORY: Weakness TECHNIQUE: Supine and upright views with chest x-ray FINDINGS: There is some coarsening of the lung markings. There is mild linear density left lung base. There is no heart failure. There is no pleural effusion. There is no sign of intestinal obstruction o r pneumoperitoneum. There is gas in the large bowel. No mechanical obstruction seen. IMPRESSION: Mild pulmonary fibrotic changes. Nonacute abdomen. Chest is stable compared to 04/15/2019.
[2019-09-21] MEDS ORDERED: SODIUM CHLORIDE 0.9% 1,000 ML IV ONE (19:12)
[2019-09-21] MEDS ORDERED: MORPHINE SULFATE 4 MG/ML SYRINGE IVP PRN (19:54)
[2019-09-21] MEDS ORDERED: MORPHINE SULFATE 4 MG/ML SYRINGE IVP STA (19:54)
[2019-09-22] MEDS: GABAPENTIN 400 MG CAP PO SCH ×2 (12:50→20:30)
--- NOTE | 2019-09-22 16:50 | P.HPIM ---
History of Present Illness H&P Date: 09/22/19 Chief Complaint: Fall and weakness History of presenting complaint: This is a pleasant 89-year-old patient of Dr. Shepard. Chronic stable medical conditions include atrial fibrillation, dementia, hypertension, Rosaline arthritis, hypothyroid, peripheral neuropathy. Patient is present ER on 09/19/2019. Patient had tripped and fell forward and attempted to catch his symptoms left hand. X-ray did confirm acute fracture of the distal radius and ulna. It was an acute impacted comminuted transverse distal radial but of isolated fracture. Patient is given pain medications, now on a split. Patient was supposed to follow with orthopedics. Dr. Cricket Khan. At [facility]. Since returning home patient not able to take care of her ADLs. Feeling becoming more weak and tired. She again fell at home. Appetite is gone down. Tolerating too well at home. Hence was brought back to the ER. No fever no chills. Review of systems: GEN.: Weak and tired EYES: None HEENT: Decreased hearing NECK: None RESPIRATORY: None CARDIOVASCULAR: None GASTROINTESTINAL: None GENITOURINARY: Urinary incontinence MUSCULOSKELETAL: Pain the joints LYMPHATICS: None HEMATOLOGICAL: None PSYCHIATRY: Forgetful NEUROLOGICAL: None Social history: No smoking or alcohol. Family medical history: Hypertension Physical examination: VITAL SIGNS: 99.2, 78, 18, 141/98, 94% on 2 L GENERAL: BMI 30.7, sitting upon a chair eating. EYES: Pupils equal. Conjunctiva normal. HEENT: External appearance of nose and ears normal, oral cavity grossly normal. NECK: JVD not raised; masses not palpable. HEART: First and second heart sounds are normal; no edema. LUNGS: Respiratory rate normal; decreased breath sounds. ABDOMEN: Soft, nontender, liver spleen not palpable, no masses palpable. PSYCH: [Patient knows her name, knows that she is in the hospital, cannot tell the name of the hospital, she thinks the year is 1980, she thinks she is here precautions not feeling well NEUROLOGICAL: Cranial nerves grossly intact; no facial asymmetry, power and sensation grossly intact. LYMPHATICS: No lymph nodes palpable in the axilla and neck MUSCULOSKELETAL: Left wrist/hand in a dressing. Evidence of OA especially in the hands INVESTIGATIONS, reviewed in the clinical context: White count and hemoglobin 11.4 potassium 4.5 bun 22 crit 0.79 Troponin I 0.089 UA positive for leukoesterase and WBC Assessment: -Left wrist distal radius ulnar fracture secondary to fall on 08/21/2019. Patient in a supportive dressing. -Medical debility multifactorial including weight worse by the recent fracture -Acute UTI with cystitis -Troponin leak likely due to he would daughter requests patch in a patient with no cardiac symptoms. -Paroxysmal atrial fibrillation with a history of A. fib -Late onset Alzheimer's dementia -Essential hypertension -Primary osteoarthritis -Peripheral neuropathy, idiopathic -Hypothyroid -Depression not otherwise specified -Hyperlipidemia Plan: Patient started on IV ceftriaxone, will switched to Keflex tomorrow. Dr. Khan will be consulted from [facility]. Home medications resumed. PTOT consult. materials planner/production planner consulted. Fall precautions. Care was discussed with the patient. Encouraged oral intake. Give IV fluids. Past Medical History Past Medical History: Atrial Fibrillation, CVA/TIA, Dementia, Hypertension, Osteoarthritis (OA), Pneumonia, Thyroid Disorder Additional Past Medical History / Comment(s): hypothyroid, migraine cephalgia, irregular heart rate, TIA, neuropathy History of Any Multi-Drug Resistant Organisms: None Reported Past Surgical History: Appendectomy, Back Surgery, Section, Orthopedic Surgery, Tonsillectomy Additional Past Surgical History / Comment(s): Back surgery failed stenosis repair, pelvic area reconstruction surgery 3x post vaginal delivery of first child, hammer toe repair with pin and removal. Past Anesthesia/Blood Transfusion Reactions: No Reported Reaction Past Psychological History: Depression Smoking Status: Never smoker Past Alcohol Use History: None Reported Past Drug Use History: None Reported - Past Family History Mother Family Medical History: Hypertension Father Family Medical History: CVA/TIA Medications and Allergies Home Medications Medication Instructions Recorded Confirmed Type DULoxetine HCL [Cymbalta] 30 mg PO BID 06/27/16 09/21/19 History Ascorbic Acid [Vitamin C] 500 mg PO DAILY 11/25/18 09/21/19 History Cholecalciferol [Vitamin D3 (25 5,000 unit PO DAILY 11/25/18 09/21/19 History Mcg = 1000 Iu)] Mirtazapine [Remeron] 15 mg PO HS 11/25/18 09/21/19 History Pravastatin Sodium [Pravachol] 10 mg PO DAILY 11/25/18 09/21/19 History Folic Acid 0.8 mg PO DAILY 04/13/19 09/21/19 History Omeprazole 20 mg PO DAILY 04/13/19 09/21/19 History Cranberry Fruit Extract [Cranberry] 500 mg PO DAILY 09/19/19 09/21/19 History Gabapentin [Neurontin] 400 mg PO Q12H 09/19/19 09/21/19 History Ipratropium [place] [Ipratropium 2 sprays EA NOSTRIL BID 09/19/19 09/21/19 History [place] 0.03%] Levothyroxine Sodium [Synthroid] 125 mcg PO DAILY 09/19/19 09/21/19 History Vit A/Vit C/Vit E/Zinc/Copper 1 cap PO DAILY 09/19/19 09/21/19 History [ICAPS SOFTGEL] Ciprofloxacin HCl [Cipro] 500 mg PO BID 09/21/19 09/21/19 History Ferrous Sulfate [Feosol] 325 mg PO DAILY 09/21/19 09/21/19 History [facility] 1 cap PO DAILY 09/21/19 09/21/19 History oxyCODONE HCL/ACETAMINOPHEN 1 tab PO Q12H PRN 09/21/19 09/21/19 History [Percocet 10-325 mg] Allergies Allergy/AdvReac Type Severity Reaction Status Date / Time amiodarone HCl Allergy Unknown Verified 09/21/19 18:48 [From Cordarone] epinephrine Allergy Unknown Verified 09/21/19 18:48 metoclopramide HCl Allergy Unknown Verified 09/21/19 18:48 [From Reglan] nifedipine [From Procardia] Allergy Unknown Verified 09/21/19 18:48 nitrofurantoin Allergy Unknown Verified 09/21/19 18:48 macrocrystalline [From Macrodantin] propafenone HCl Allergy Unknown Verified 09/21/19 18:48 [From Rythmol] Quinolones Allergy Unknown Verified 09/21/19 18:48 novacaine Allergy Unknown Uncoded 09/21/19 16:49 Physical Exam Vitals: Vital Signs Temp Pulse Pulse Resp BP BP Pulse Ox 09/22/19 15:00 97.7 F 79 18 167/78 91 L 09/22/19 07:00 97.5 F L 86 17 198/102 87 L 09/22/19 01:30 EDT 98.2 F 92 22 146/68 90 L 09/21/19 20:40 98.6 F 95 16 146/68 98 09/21/19 20:00 99.2 F 78 18 141/98 94 L 09/21/19 19:00 88 20 141/81 99 09/21/19 18:00 88 20 155/68 94 L Intake and Output 09/22/19 09/22/19 09/22/19 06:59 14:59 22:59 Intake Total 408 Balance 408 Intake: IV 50 cefTRIAXone 1 gm In 50 Sodium Chloride 0.9% 50 ml @ 100 mls/hr IVPB Q24HR YOLANDA Rx#:[id number] Intake, IV Titration Amount Sodium Chloride 0.9% 1, 000 ml @ 100 mls/hr IV . Q10H ONE Rx#:[id number] Oral 358 Other: # Voids Results CBC & Chem 7: 09/21/19 17:50 09/21/19 17:50 Labs: Abnormal Lab Results - Last 24 Hours (Table) 09/21/19 09/21/19 09/21/19 Range/Units 17:50 17:50 17:50 Lymphocytes # 0.9 L (1.0-4.8) k/uL Basophils # 0.3 H (0-0.2) k/uL Sodium 136 L (137-145) mmol/L BUN 22 H (7-17) mg/dL Glucose 138 H (74-99) mg/dL Troponin I 0.089 H* (0.000-0.034) ng/mL Urine Appearance (Clear) Urine Protein (Negative) Ur Leukocyte Esterase (Negative) Urine WBC (0-5) /hpf Urine WBC Clumps (None) /hpf Urine Bacteria (None) /hpf Urine Mucus (None) /hpf 09/21/19 Range/Units 18:00 Lymphocytes # (1.0-4.8) k/uL Basophils # (0-0.2) k/uL Sodium (137-145) mmol/L BUN (7-17) mg/dL Glucose (74-99) mg/dL Troponin I (0.000-0.034) ng/mL Urine Appearance Cloudy H (Clear) Urine Protein 1+ H (Negative) Ur Leukocyte Esterase Large H (Negative) Urine WBC >182 H (0-5) /hpf Urine WBC Clumps Many H (None) /hpf Urine Bacteria Rare H (None) /hpf Urine Mucus Rare H (None) /hpf Microbiology - Last 24 Hours (Table) 09/21/19 18:00 Urine Culture - Preliminary Urine,Voided Thrombosis Risk Factor Assmnt - Choose All That Apply Any of the Below Risk Factors Present?: No Other Risk Factors: Yes Each Risk Factor Represents 3 Points: Age 75 years or older Other congenital or acquired thrombophilia - If yes, enter type in comment: No Thrombosis Risk Factor Assessment Total Risk Factor Score: 3 Thrombosis Risk Factor Assessment Level: Moderate Risk
[2019-09-22] MEDS: ENOXAPARIN 40 MG/0.4 ML SYRINGE SQ SCH (17:59)
[2019-09-22] MEDS: CEPHALEXIN 250 MG CAP PO SCH ×2 (17:59→21:26)
[2019-09-22] MEDS: DULoxetine HCL 30 MG CAPSULE.DR PO SCH (20:30)
[2019-09-22] MEDS: ACETAMINOPHEN TAB 325 MG TAB PO PRN (20:30)
[2019-09-22] MEDS: MIRTAZAPINE 15 MG TAB PO SCH (20:30)
[2019-09-23] MEDS: LEVOTHYROXINE 125 MCG TAB PO SCH (04:48)
[2019-09-23] MEDS: FOLIC ACID 1 MG TAB PO SCH (07:43)
[2019-09-23] MEDS: ASCORBIC ACID 500 MG TAB PO SCH (07:43)
[2019-09-23] MEDS: FERROUS SULFATE 325 MG TAB PO SCH (07:43)
[2019-09-23] MEDS: GABAPENTIN 400 MG CAP PO SCH ×2 (07:43→21:46)
[2019-09-23] MEDS: PANTOPRAZOLE 40 MG TABLET PO SCH (07:43)
[2019-09-23] MEDS: PRAVASTATIN SODIUM 20 MG TAB PO SCH (07:43)
[2019-09-23] MEDS: CHOLECALCIFEROL 1,000 UNIT TAB PO SCH (07:44)
[2019-09-23] MEDS: ENOXAPARIN 40 MG/0.4 ML SYRINGE SQ SCH (07:45)
[2019-09-23] MEDS: DULoxetine HCL 30 MG CAPSULE.DR PO SCH ×2 (07:45→21:45)
[2019-09-23] MEDS: CEPHALEXIN 250 MG CAP PO SCH ×4 (07:45→21:46)
[2019-09-23] MEDS: VIT A,C & E-LUTEIN-MINERALS 1 EACH TAB PO SCH (07:46)
--- NOTE | 2019-09-23 08:59 | P.CNOR ---
<Kim Hall - Last Filed: 09/23/19 12:34> History of Present Illness - [facility] Consult date: 09/23/19 Consult reason: fracture (Left distal radius and ulna fractures) History of present illness: The patient is a pleasant 89-year-old female who was seen in our office on Monday and a closed reduction and application of a sugar tong splint was completed by Dr. Khan. The patient fell on 09/19/2019 after tripping and falling forward onto her hands. She does have advanced dementia according to the patient's family. She had immediate pain and swelling in the left wrist and went to the emergency department on the same day. X-rays were taken and she was placed in a splint. Further follow up the next day in our office on 08/20/2019 revealed a displaced intraarticular distal radius fracture and ulnar styloid fracture. The patient's family was concerned due to the patient's declining physical status and skilled rehab was suggested. Dr. Khan attempted to call Dr. Shepard's office on Monday afternoon but the office was closed. The family was instructed to bring her to the emergency department if there is a further decline and they were unable to take care of her. The patient did have an a fall again at home. She is also not eating or drinking and required maximum assistance at home. The patient's family did bring her to the emergency department for admission and skilled rehab placement. She is also being treated for UTI. Today, the patient states that her pain is controlled in her left arm. Physical therapy was in the room during my evaluation and she was sitting on the side of the bed without difficulty. She denies fever, chills, rigors, nausea, vomiting, diarrhea, shortness breath, abdominal pain, and chest pain. Review of Systems Constitutional: Denies chills, Denies fever Cardiovascular: Denies chest pain, Denies shortness of breath Respiratory: Denies cough Gastrointestinal: Reports loss of appetite, Denies abdominal pain, Denies diarrhea, Denies nausea, Denies vomiting Musculoskeletal: left: wrist pain, wrist stiffness, wrist swelling Past Medical History Past Medical History: Atrial Fibrillation, CVA/TIA, Dementia, Hypertension, Osteoarthritis (OA), Pneumonia, Thyroid Disorder Additional Past Medical History / Comment(s): hypothyroid, migraine cephalgia, irregular heart rate, TIA, neuropathy History of Any Multi-Drug Resistant Organisms: None Reported Past Surgical History: Appendectomy, Back Surgery, Section, Orthopedic Surgery, Tonsillectomy Additional Past Surgical History / Comment(s): Back surgery failed stenosis repair, pelvic area reconstruction surgery 3x post vaginal delivery of first child, hammer toe repair with pin and removal. Past Anesthesia/Blood Transfusion Reactions: No Reported Reaction Past Psychological History: Depression Smoking Status: Never smoker Past Alcohol Use History: None Reported Past Drug Use History: None Reported - Past Family History Mother Family Medical History: Hypertension Father Family Medical History: CVA/TIA Medications and Allergies Home Medications Medication Instructions Recorded Confirmed Type DULoxetine HCL [Cymbalta] 30 mg PO BID 06/27/16 09/21/19 History Ascorbic Acid [Vitamin C] 500 mg PO DAILY 11/25/18 09/21/19 History Cholecalciferol [Vitamin D3 (25 5,000 unit PO DAILY 11/25/18 09/21/19 History Mcg = 1000 Iu)] Mirtazapine [Remeron] 15 mg PO HS 11/25/18 09/21/19 History Pravastatin Sodium [Pravachol] 10 mg PO DAILY 11/25/18 09/21/19 History Folic Acid 0.8 mg PO DAILY 04/13/19 09/21/19 History Omeprazole 20 mg PO DAILY 04/13/19 09/21/19 History Cranberry Fruit Extract [Cranberry] 500 mg PO DAILY 09/19/19 09/21/19 History Gabapentin [Neurontin] 400 mg PO Q12H 09/19/19 09/21/19 History Ipratropium Merkel [Ipratropium 2 sprays EA NOSTRIL BID 09/19/19 09/21/19 History Merkel 0.03%] Levothyroxine Sodium [Synthroid] 125 mcg PO DAILY 09/19/19 09/21/19 History Vit A/Vit C/Vit E/Zinc/Copper 1 cap PO DAILY 09/19/19 09/21/19 History [ICAPS SOFTGEL] Ciprofloxacin HCl [Cipro] 500 mg PO BID 09/21/19 09/21/19 History Ferrous Sulfate [Feosol] 325 mg PO DAILY 09/21/19 09/21/19 History [facility] 1 cap PO DAILY 09/21/19 09/21/19 History oxyCODONE HCL/ACETAMINOPHEN 1 tab PO Q12H PRN 09/21/19 09/21/19 History [Percocet 10-325 mg] Acetaminophen Tab [Tylenol Tab] 650 mg PO Q6H PRN #30 tablet 09/24/19 Rx Allergies Allergy/AdvReac Type Severity Reaction Status Date / Time amiodarone HCl Allergy Unknown Verified 09/21/19 18:48 [From Cordarone] epinephrine Allergy Unknown Verified 09/21/19 18:48 metoclopramide HCl Allergy Unknown Verified 09/21/19 18:48 [From Reglan] nifedipine [From Procardia] Allergy Unknown Verified 09/21/19 18:48 nitrofurantoin Allergy Unknown Verified 09/21/19 18:48 macrocrystalline [From Macrodantin] propafenone HCl Allergy Unknown Verified 09/21/19 18:48 [From Rythmol] Quinolones Allergy Unknown Verified 09/21/19 18:48 novacaine Allergy Unknown Uncoded 09/21/19 16:49 Physical Examination The patient is an 89-year-old female who is in no acute distress. She is alert and oriented 1. Exam of the left upper extremity reveals a well padded sugar tong splint. There is swelling and ecchymosis to the fingers and thumb. She is able to move her fingers freely and make a fist. Neurological and circulatory status is intact. Fingers are warm and well perfused. Results - Labs Labs: Microbiology - Last 24 Hours (Table) 09/21/19 17:50 Blood Culture - Preliminary Blood No Growth after 24 hours 09/21/19 18:00 Urine Culture - Final Urine,Voided H & H 09/21/19 Range/Units 17:50 Hgb 11.4 (11.4-16.0) gm/dL Hct 36.2 (34.0-46.0) % Coagulation 09/21/19 Range/Units 17:50 INR 0.9 (<1.2) Result Diagrams: 09/21/19 17:50 09/21/19 17:50 - Diagnostic results Wrist/Hand x-ray: image reviewed (Two views of the left wrist dated 09/23/2019 reveal satisfactory position of the intraarticular distal radius fracture. Th ere is an non-displaced ulnar styloid fracture as well. ) Assessment and Plan (1) Displaced fracture of distal end of radius Current Visit: Yes Status: Acute Code(s): S52.509A - UNSP FRACTURE OF THE LOWER END OF UNSP RADIUS, INIT SNOMED Code(s): 045923752 (2) Fracture of styloid process of left ulna Current Visit: Yes Status: Acute Code(s): S52.612A - DISP FX OF LEFT ULNA STYLOID PROCESS, INIT FOR CLOS FX SNOMED Code(s): 135389767 (3) Failure of outpatient treatment Current Visit: Yes Status: Acute Code(s): Z78.9 - OTHER SPECIFIED HEALTH S TATUS SNOMED Code(s): 259484303 (4) Generalized weakness Current Visit: Yes Status: Acute Code(s): R53.1 - WEAKNESS SNOMED Code(s): 87403167 (5) UTI (urinary tract infection) Current Visit: Yes Status: Acute Code(s): N39.0 - URINARY TRACT INFECTION, SITE NOT SPECIFIED SNOMED Code(s): 52652614 (6) Fall Current Visit: No Status: Acute Code(s): W19.XXXA - UNSPECIFIED FALL, INITIAL ENCOUNTER SNOMED Code(s): 4271933 Plan: The clinical and x-ray findings were discussed with the patient. The case was also discussed with Dr. Khan. Continue in sugar tong splint. Ice and elevate left wrist. Continue PT and OT evaluations. Continue pain control with Tylenol. X-rays of the left wrist were obtained today due to her recent fall. No surgical intervention is planned at this time. The patient will likely require skilled rehab placement. She is orthopedically stable at this time and we will sign off for now. <Cricket Khan - Last Filed: 09/25/19 11:52> Results - Labs Labs: Microbiology - Last 24 Hours (Table) 09/21/19 17:50 Blood Culture - Preliminary Blood No Growth after 72 hours H & H 09/21/19 Range/Units 17:50 Hgb 11.4 (11.4-16.0) gm/dL Hct 36.2 (34.0-46.0) % Coagulation 09/21/19 Range/Units 17:50 INR 0.9 (<1.2) Result Diagrams: 09/21/19 17:50 09/21/19 17:50 Assessment and Plan Plan: Discussed with FLOR Hall and agree with above. Patient was subsequently seen and examined by myself as well. S: Patient demonstrates persistent evidence of confusion, consistent with dementia. She appears comfortable, not agitated and is pleasantly interactive. O: Moderate edema of the left hand due to pressure of the splint. This was adjusted. No pain with active digital motion. Imaging: Fracture reduction and alignment appears well maintained. No new fractures are identified. A: 1. Displaced left distal radius fracture status post closed reduction. 2. Advanced dementia. 3. UTI P: The fracture is well aligned and we will continue with nonsurgical management. Anticipate discharge to a skilled rehabilitation facility. Patient should follow up with al outpatient next week for repeat x-rays and cast application. Cricket Khan D.O. [facility]
--- NOTE | 2019-09-23 12:04 | XR ---
EXAMINATION TYPE: XR wrist limited LT DATE OF EXAM: 09/23/2019 COMPARISON: 09/19/2019 HISTORY: Pain TECHNIQUE: 2 views submitted FINDINGS: Exam limited by overlying casting material. There is acute impacted comminuted transverse f racture distal radial metaphysis. Fracture line extends to the radiocarpal joint. There is no disloca tion. There is noted significant displacement. There is nondisplaced fracture ulnar styloid process. There is soft tissue swelling around the carpus. There is moderately severe osteoarthritis at the fir st carpometacarpal joint. On the upper margin of the scaphoid there is a subtle deformity however exa m is severely limited due to overlying no definite acute fracture previous exam. Correlate with point tenderness. IMPRESSION: Acute fractures distal radius and ulna as above.
[2019-09-23] MEDS: ACETAMINOPHEN TAB 325 MG TAB PO PRN (14:24)
[2019-09-23] MEDS: MIRTAZAPINE 15 MG TAB PO SCH (21:46)
--- NOTE | 2019-09-23 22:21 | P.PN ---
Progress Note - Text Progress Note Date: 09/23/19 Chief Complaint: Fall and weakness History of presenting complaint: This is a pleasant 89-year-old patient of Dr. Shepard. Chronic stable medical conditions include atrial fibrillation, dementia, hypertension, Rosaline arthritis, hypothyroid, peripheral neuropathy. Patient is present ER on 09/19/2019. Patient had tripped and fell forward and attempted to catch his symptoms left hand. X-ray did confirm acute fracture of the distal radius and ulna. It was an acute impacted comminuted transverse distal radial but of isolated fracture. Patient is given pain medications, now on a split. Patient was supposed to follow with orthopedics. Dr. Cricket Khan[facility] Since returning home patient not able to take care of her ADLs. Feeling becoming more weak and tired. She again fell at home. Appetite is gone down. She felt. Hence was brought back to the ER. No fever no chills. Today-sitting up. Some pain in his left wrist. Did tolerate her diet. Seen by orthopedics. Per family further intervention. Review of systems: Was done for constitutional, cardiovascular, GI, pulmonary. relevant finding as above Active Medications Acetaminophen (Tylenol Tab) 650 mg PO Q6HR PRN PRN Reason: Fever and/ or Pain Last Admin: 09/23/19 14:24 Dose: 650 mg Documented by: Ascorbic Acid (Vitamin C) 500 mg PO DAILY [facility] Last Admin: 09/23/19 07:43 Dose: 500 mg Documented by: Cephalexin (Keflex) 250 mg PO QID [facility] Last Admin: 09/23/19 21:46 Dose: 250 mg Documented by: Cholecalciferol (Vitamin D3 (25 Mcg = 1000 Iu)) 5,000 unit PO DAILY [facility] Last Admin: 09/23/19 07:44 Dose: 5,000 unit Documented by: Duloxetine HCl (Cymbalta) 30 mg PO BID [facility] Last Admin: 09/23/19 21:45 Dose: 30 mg Documented by: Enoxaparin Sodium (Lovenox) 40 mg SQ DAILY [facility] Last Admin: 09/23/19 07:45 Dose: 40 mg Documented by: Ferrous Sulfate (Feosol) 325 mg PO DAILY [facility] Last Admin: 09/23/19 07:43 Dose: 325 mg Documented by: Folic Acid (Folic Acid) 1 mg PO DAILY [facility] Last Admin: 09/23/19 07:43 Dose: 1 mg Documented by: Gabapentin (Neurontin) 400 mg PO Q12HR [facility] Last Admin: 09/23/19 21:46 Dose: 400 mg Documented by: Levothyroxine Sodium (Synthroid) 125 mcg PO DAILY@0630 [facility] Last Admin: 09/23/19 04:48 Dose: 125 mcg Documented by: Mirtazapine (Remeron) 15 mg PO HS [facility] Last Admin: 09/23/19 21:46 Dose: 15 mg Documented by: Morphine Sulfate (Morphine Sulfate (Inj)) 4 mg IVP Q4HR PRN PRN Reason: Pain Multivitamins/Minerals (Ivite) 1 each PO DAILY [facility] Last Admin: 09/23/19 07:46 Dose: 1 each Documented by: Pantoprazole Sodium (Protonix) 40 mg PO AC-BRKFST [facility] Last Admin: 09/23/19 07:43 Dose: 40 mg Documented by: Pravastatin Sodium (Pravachol) 10 mg PO DAILY [facility] Last Admin: 09/23/19 07:43 Dose: 10 mg Documented by: Physical examination: VITAL SIGNS: 98.5, 80, 14, 11 9/81, 94% room air GENERAL: Sitting up in a chair. Comfortable EYES: Pupils equal. Conjunctiva normal. HEENT: External appearance of nose and ears normal, oral cavity grossly normal. NECK: JVD not raised; masses not palpable. HEART: First and second heart sounds are normal; no edema. LUNGS: Respiratory rate normal; decreased breath sounds. ABDOMEN: Soft, nontender, liver spleen not palpable, no masses palpable. PSYCH: [Patient knows her name, knows that she is in the hospital, cannot tell the name of the hospital, she thinks the year is 1980, she thinks she is here precautions not feeling well MUSCULOSKELETAL: Left wrist/hand in a dressing. Evidence of OA especially in the hands INVESTIGATIONS, reviewed in the clinical context: White count and hemoglobin 11.4 potassium 4.5 bun 22 crit 0.79 Troponin I 0.089 UA positive for leukoesterase and WBC, urine culture negative Assessment: -Left wrist distal radius ulnar fracture secondary to fall on 08/21/2019. Patient in a supportive dressing. Not for any surgical intervention per orthopedics. -Medical debility multifactorial including weight worse by the recent fracture -Acute UTI with cystitis -Troponin leak likely due to he would daughter requests patch in a patient with no cardiac symptoms. -Paroxysmal atrial fibrillation with a history of A. fib -Late onset Alzheimer's dementia -Essential hypertension -Primary osteoarthritis -Peripheral neuropathy, idiopathic -Hypothyroid -Depression not otherwise specified -Hyperlipidemia Plan: Patient oral Keflex. Patient should pupils to go to the [facility] tomorrow when okay with transportation planner. Discussed with the patient.
[2019-09-24] MEDS: LEVOTHYROXINE 125 MCG TAB PO SCH (06:06)
[2019-09-24] MEDS: ACETAMINOPHEN TAB 325 MG TAB PO PRN ×3 (07:19→21:54)
[2019-09-24] MEDS: PRAVASTATIN SODIUM 20 MG TAB PO SCH (07:19)
[2019-09-24] MEDS: GABAPENTIN 400 MG CAP PO SCH ×2 (07:19→21:50)
[2019-09-24] MEDS: FOLIC ACID 1 MG TAB PO SCH (07:19)
[2019-09-24] MEDS: CHOLECALCIFEROL 1,000 UNIT TAB PO SCH (07:20)
[2019-09-24] MEDS: ASCORBIC ACID 500 MG TAB PO SCH (07:20)
[2019-09-24] MEDS: PANTOPRAZOLE 40 MG TABLET PO SCH (07:21)
[2019-09-24] MEDS: DULoxetine HCL 30 MG CAPSULE.DR PO SCH ×2 (07:21→21:50)
[2019-09-24] MEDS: FERROUS SULFATE 325 MG TAB PO SCH (07:21)
[2019-09-24] MEDS: CEPHALEXIN 250 MG CAP PO SCH ×4 (07:21→21:50)
[2019-09-24] MEDS: VIT A,C & E-LUTEIN-MINERALS 1 EACH TAB PO SCH (07:21)
[2019-09-24] MEDS: ENOXAPARIN 40 MG/0.4 ML SYRINGE SQ SCH (07:22)
[2019-09-24] MEDS: MIRTAZAPINE 15 MG TAB PO SCH (21:50)
--- NOTE | 2019-09-24 23:00 | P.PN ---
Progress Note - Text Progress Note Date: 09/24/19 Chief Complaint: Fall and weakness History of presenting complaint: This is a pleasant 89-year-old patient of Dr. Shepard. Chronic stable medical conditions include atrial fibrillation, dementia, hypertension, Rosaline arthritis, hypothyroid, peripheral neuropathy. Patient is present ER on 09/19/2019. Patient had tripped and fell forward and attempted to catch his symptoms left hand. X-ray did confirm acute fracture of the distal radius and ulna. It was an acute impacted comminuted transverse distal radial but of isolated fracture. Patient is given pain medications, now on a split. Patient was supposed to follow with orthopedics. Dr. Cricket Khan. [facility]. Since returning home patient not able to take care of her ADLs. Feeling becoming more weak and tired. She again fell at home. Appetite is gone down. She felt. Hence was brought back to the ER. No fever no chills. Today-no new issues. Sitting up. Tolerating a diet. Review of systems: Was done for constitutional, cardiovascular, GI, pulmonary. relevant finding as above Active Medications Acetaminophen (Tylenol Tab) 650 mg PO Q6HR PRN PRN Reason: Fever and/ or Pain Last Admin: 09/24/19 21:54 Dose: 650 mg Documented by: Ascorbic Acid (Vitamin C) 500 mg PO DAILY [facility] Last Admin: 09/24/19 07:20 Dose: 500 mg Documented by: Cephalexin (Keflex) 250 mg PO QID [facility] Last Admin: 09/24/19 21:50 Dose: 250 mg Documented by: Cholecalciferol (Vitamin D3 (25 Mcg = 1000 Iu)) 5,000 unit PO DAILY [facility] Last Admin: 09/24/19 07:20 Dose: 5,000 unit Documented by: Duloxetine HCl (Cymbalta) 30 mg PO BID [facility] Last Admin: 09/24/19 21:50 Dose: 30 mg Documented by: Enoxaparin Sodium (Lovenox) 40 mg SQ DAILY [facility] Last Admin: 09/24/19 07:22 Dose: 40 mg Documented by: Ferrous Sulfate (Feosol) 325 mg PO DAILY [facility] Last Admin: 09/24/19 07:21 Dose: 325 mg Documented by: Folic Acid (Folic Acid) 1 mg PO DAILY [facility] Last Admin: 09/24/19 07:19 Dose: 1 mg Documented by: Gabapentin (Neurontin) 400 mg PO Q12HR [facility] Last Admin: 09/24/19 21:50 Dose: 400 mg Documented by: Levothyroxine Sodium (Synthroid) 125 mcg PO DAILY@0630 [facility] Last Admin: 09/24/19 06:06 Dose: 125 mcg Documented by: Mirtazapine (Remeron) 15 mg PO HS [facility] Last Admin: 09/24/19 21:50 Dose: 15 mg Documented by: Morphine Sulfate (Morphine Sulfate (Inj)) 4 mg IVP Q4HR PRN PRN Reason: Pain Multivitamins/Minerals (Ivite) 1 each PO DAILY [facility] Last Admin: 09/24/19 07:21 Dose: 1 each Documented by: Pantoprazole Sodium (Protonix) 40 mg PO AC-BRKFST [facility] Last Admin: 09/24/19 07:21 Dose: 40 mg Documented by: Pravastatin Sodium (Pravachol) 10 mg PO DAILY [facility] Last Admin: 09/24/19 07:19 Dose: 10 mg Documented by: Physical examination: VITAL SIGNS: 98.3, 81, 16, 141/84, 95% room air GENERAL: Sitting up, comfortable EYES: Pupils equal. Conjunctiva normal. HEENT: External appearance of nose and ears normal, oral cavity grossly normal. NECK: JVD not raised; masses not palpable. HEART: First and second heart sounds are normal; no edema. LUNGS: Respiratory rate normal; decreased breath sounds. ABDOMEN: Soft, nontender, liver spleen not palpable, no masses palpable. PSYCH: Answering simple questions MUSCULOSKELETAL: Left wrist/hand in a dressing. Evidence of OA especially in the hands INVESTIGATIONS, reviewed in the clinical context: White count and hemoglobin 11.4 potassium 4.5 bun 22 crit 0.79 Troponin I 0.089 UA positive for leukoesterase and WBC, urine culture negative Assessment: -Left wrist distal radius ulnar fracture secondary to fall on 08/21/2019. Patient in a supportive dressing. Not for any surgical intervention per orthopedics. -Medical debility multifactorial including weight worse by the recent fracture -Acute UTI with cystitis -Troponin leak likely due to hemodynamic mismatch. -Paroxysmal atrial fibrillation with a history of A. fib -Late onset Alzheimer's dementia -Essential hypertension -Primary osteoarthritis -Peripheral neuropathy, idiopathic -Hypothyroid -Depression not otherwise specified -Hyperlipidemia Plan: Stable. Continue current medication for plan. Awaiting acceptance of the ECF.
[2019-09-25 01:07] VITALS: RESP 16
[2019-09-25] MEDS: LEVOTHYROXINE 125 MCG TAB PO SCH (05:24)
[2019-09-25] MEDS: CHOLECALCIFEROL 1,000 UNIT TAB PO SCH (07:15)
[2019-09-25] MEDS: FERROUS SULFATE 325 MG TAB PO SCH (07:15)
[2019-09-25] MEDS: PRAVASTATIN SODIUM 20 MG TAB PO SCH (07:15)
[2019-09-25] MEDS: GABAPENTIN 400 MG CAP PO SCH (07:16)
[2019-09-25] MEDS: ASCORBIC ACID 500 MG TAB PO SCH (07:16)
[2019-09-25] MEDS: FOLIC ACID 1 MG TAB PO SCH (07:16)
[2019-09-25] MEDS: VIT A,C & E-LUTEIN-MINERALS 1 EACH TAB PO SCH (07:16)
[2019-09-25] MEDS: PANTOPRAZOLE 40 MG TABLET PO SCH (07:16)
[2019-09-25] MEDS: DULoxetine HCL 30 MG CAPSULE.DR PO SCH (07:16)
[2019-09-25] MEDS: ACETAMINOPHEN TAB 325 MG TAB PO PRN ×2 (07:16→14:05)
[2019-09-25] MEDS: CEPHALEXIN 250 MG CAP PO SCH ×2 (07:17→14:06)
[2019-09-25] MEDS: ENOXAPARIN 40 MG/0.4 ML SYRINGE SQ SCH (07:17)
[2019-09-25 07:27] VITALS: BP 144/85; PULSE 87; TEMP 98.1
--- NOTE | 2019-09-25 13:15 | P.DS ---
Providers Date of admission: 09/22/19 13:04 Expected date of discharge: 09/25/19 Attending physician: Jl Sood Consults: 09/22/19 16:50 Consult Physician Routine Consulting Provider: Cricket Khan Consult Reason/Comments: left wrist fracture Do you want consulting provider notified?: Yes Primary care physician: Jacob Bronson [facility] Course: Chief Complaint: Fall and weakness Hospital course: This is a pleasant 89-year-old patient of Dr. Shepard. Chronic stable medical conditions include atrial fibrillation, dementia, hypertension, Rosaline arthritis, hypothyroid, peripheral neuropathy. Patient is present ER on 09/19/2019. Patient had tripped and fell forward and attempted to catch his symptoms left hand. X-ray did confirm acute fracture of the distal radius and ulna. It was an acute impacted comminuted transverse distal radial but of isolated fracture. Patient is given pain medications, now on a split. Patient was supposed to follow with orthopedics. Dr. Cricket Khan. [facility]. Since returning home patient not able to take care of her ADLs. Feeling becoming more weak and tired. She again fell at home. Appetite is gone down. She felt. Hence was brought back to the ER. No fever no chills. Seen by [facility]. Not for any surgical intervention. We will go to inpatient rehab. Otherwise tolerating a diet. Also treated for UTI. Negative culture. Consultation: Dr. Cricket Khan from orthopedics Physical examination: VITAL SIGNS: 98.1, 87, 16, 144/85, 93% room air GENERAL: Sitting up, comfortable EYES: Pupils equal. Conjunctiva normal. HEENT: External appearance of nose and ears normal, oral cavity grossly normal. NECK: JVD not raised; masses not palpable. HEART: First and second heart sounds are normal; no edema. LUNGS: Respiratory rate normal; decreased breath sounds. ABDOMEN: Soft, nontender, liver spleen not palpable, no masses palpable. PSYCH: Answering simple questions MUSCULOSKELETAL: Left wrist/hand in a dressing. Evidence of OA especially in the hands INVESTIGATIONS, reviewed in the clinical context: White count and hemoglobin 11.4 potassium 4.5 bun 22 crit 0.79 Troponin I 0.089 UA positive for leukoesterase and WBC, urine culture negative Assessment: -Left wrist distal radius ulnar fracture secondary to fall on 08/21/2019. Patient in a supportive dressing. Not for any surgical intervention per orthopedics. -Medical debility multifactorial -Acute UTI with cystitis -Troponin leak likely due to hemodynamic mismatch. No cardiac symptoms. -Paroxysmal atrial fibrillation with a history of A. fib -Late onset Alzheimer's dementia. Moderate cognitive impairment -Essential hypertension -Primary osteoarthritis -Peripheral neuropathy, idiopathic -Hypothyroid -Depression not otherwise specified -Hyperlipidemia Disposition: ECF/[facility] Patient Condition at Discharge: Stable Plan - Discharge Summary Discharge Rx Participant: Yes New Discharge Prescriptions: New Acetaminophen Tab [Tylenol Tab] 650 mg PO Q6H PRN #30 tablet PRN Reason: Pain No Action DULoxetine HCL [Cymbalta] 30 mg PO BID Cholecalciferol [Vitamin D3 (25 Mcg = 1000 Iu)] 5,000 unit PO DAILY Ascorbic Acid [Vitamin C] 500 mg PO DAILY Pravastatin Sodium [Pravachol] 10 mg PO DAILY Mirtazapine [Remeron] 15 mg PO HS Omeprazole 20 mg PO DAILY Folic Acid 0.8 mg PO DAILY Cranberry Fruit Extract [Cranberry] 500 mg PO DAILY Levothyroxine Sodium [Synthroid] 125 mcg PO DAILY Ipratropium [place] [Ipratropium [place] 0.03%] 2 sprays EA NOSTRIL BID Vit A/Vit C/Vit E/Zinc/Copper [ICAPS SOFTGEL] 1 cap PO DAILY Gabapentin [Neurontin] 400 mg PO Q12H [facility] 1 cap PO DAILY Ciprofloxacin HCl [Cipro] 500 mg PO BID oxyCODONE HCL/ACETAMINOPHEN [Percocet 10-325 mg] 1 tab PO Q12H PRN PRN Reason: Pain Ferrous Sulfate [Feosol] 325 mg PO DAILY Discharge Medication List DULoxetine HCL [Cymbalta] 30 mg PO BID 06/27/16 [History] Ascorbic Acid [Vitamin C] 500 mg PO DAILY 11/25/18 [History] Cholecalciferol [Vitamin D3 (25 Mcg = 1000 Iu)] 5,000 unit PO DAILY 11/25/18 [History] Mirtazapine [Remeron] 15 mg PO HS 11/25/18 [History] Pravastatin Sodium [Pravachol] 10 mg PO DAILY 11/25/18 [History] Folic Acid 0.8 mg PO DAILY 04/13/19 [History] Omeprazole 20 mg PO DAILY 04/13/19 [History] Cranberry Fruit Extract [Cranberry] 500 mg PO DAILY 09/19/19 [History] Gabapentin [Neurontin] 400 mg PO Q12H 09/19/19 [History] Ipratropium [place] [Ipratropium [place] 0.03%] 2 sprays EA NOSTRIL BID 09/19/19 [History] Levothyroxine Sodium [Synthroid] 125 mcg PO DAILY 09/19/19 [History] Vit A/Vit C/Vit E/Zinc/Copper [ICAPS SOFTGEL] 1 cap PO DAILY 09/19/19 [History] Ciprofloxacin HCl [Cipro] 500 mg PO BID 09/21/19 [History] Ferrous Sulfate [Feosol] 325 mg PO DAILY 09/21/19 [History] [facility] 1 cap PO DAILY 09/21/19 [History] oxyCODONE HCL/ACETAMINOPHEN [Percocet 10-325 mg] 1 tab PO Q12H PRN 09/21/19 [History] Acetaminophen Tab [Tylenol Tab] 650 mg PO Q6H PRN #30 tablet 09/24/19 [Rx] Follow up Appointment(s)/Referral(s): Jacob Shepard DO [Primary Care Provider] - 1-2 days Cricket Khan DO [Medical Doctor] - 1 Week (Change follow up appointment with Dr. Khan to 09/30/2019 or 10/01/2019. ) Activity/Diet/Wound Care/Special Instructions: Keep splint clean and dry Ice and elevate left upper extremity Encourage finger motion Follow up with Dr. Khan early next week for x-rays and possible cast application of the left wrist. Discharge Disposition: TRANSFER TO SNF/ECF
== END 2019-09-25 15:01 | DRG 690 ==
LOC: EC 16:34 → 4SSUR 19:13 → OBSVTOIN 09-22 13:04
PROVIDERS: ADMIT Hospitalist; ATTEND Hospitalist
DX: N30.90 Cystitis, unspecified without hematuria (principal); S52.501A Unspecified fracture of the lower end of right radius, initial encounter for closed fracture; S52.614A Nondisplaced fracture of right ulna styloid process, initial encounter for closed fracture; E03.9 Hypothyroidism, unspecified; E78.5 Hyperlipidemia, unspecified; F02.80 Dementia in other diseases classified elsewhere, unspecified severity, without behavioral disturbance, psychotic disturbance, mood disturbance, and anxiety; F32.9 Major depressive disorder, single episode, unspecified; G30.1 Alzheimer's disease with late onset; G62.9 Polyneuropathy, unspecified; G89.29 Other chronic pain; I10 Essential (primary) hypertension; I48.0 Paroxysmal atrial fibrillation; M19.91 Primary osteoarthritis, unspecified site; W01.0XXA Fall on same level from slipping, tripping and stumbling without subsequent striking against object, initial encounter; Y92.009 Unspecified place in unspecified non-institutional (private) residence as the place of occurrence of the external cause; Z79.890 Hormone replacement therapy; Z79.899 Other long term (current) drug therapy; Z82.49 Family history of ischemic heart disease and other diseases of the circulatory system; Z86.73 Personal history of transient ischemic attack (TIA), and cerebral infarction without residual deficits; Z88.1 Allergy status to other antibiotic agents; Z88.8 Allergy status to other drugs, medicaments and biological substances
CPT/HCPCS: 36415; 74022; 80053; 81001; 82550; 82553; 83735; 83880; 84100; 84484; 85025; 85610; 85730; 87040; 87086; 93005; 94760; 96361; 96365; 96375; 99285